=== PATIENT | female | born 1935 | race Caucasian/White ===

== ENCOUNTER → 2017-08-26 | Outpatient (CLI) | payer MEDICARE ==
[~2017-08-26] MED LIST: AMLODIPINE BESYL5 M1 PO; ASPIRIN325 PO; AZITHROMYCIN 2250 MG PO; B12INJ IM; CARAFATE 1 GM TA1 G1 PO; CARBIDOPA-LEVO1 EAC8 PO; COZAAR 25 MG TA25 M1 PO; COZAAR 50 MG TA50 M2 PO; FEROSUL325 M1 PO; GLUCOTROL5 MG PO; HUMALOG100 UNIT/1 SUBQ; HYDRALAZINE 2525 MG PO; HYDROCHLOROTH12.5 M1 PO; KEFLEX500 M1 PO; LASIX 40 MG TAB40 M2 PO; LEVALBUTER1.25 MG/0. INH; LEVOBUNOLOL 0.5%5 M1 OPHTHALMIC; LIPITOR 20 MG T20 M1 PO; LIPITOR10 MG PO; METFORMIN HCL500 MG PO; POTASSIUM20 PO; PROTONIX 20 MG20 M1 PO; PROTONIX40 M1 PO; SINEMET 25-1001 EAC1 PO; SYNTHROID88 MCG PO; VITAMIN B-1100 M1 PO; XALATAN2.5 ML OPHTHALMIC; [UNRECOGNIZED DRUG - OTHER] PO
[2017-08-26 08:19] LABS: POTASSIUM 3.5 mmol/L (3.5-5.1)
== END ==
LOC: M.LAB 01:39
PROVIDERS: Anesthesiology
DX: Z01.812 Encounter for preprocedural laboratory examination (principal); Z79.899 Other long term (current) drug therapy

== ENCOUNTER 2017-09-01 09:20 | Emergency (ER) | payer MEDICARE ==
[~2017-09-01] VITALS: Ht 144.8 cm; Wt 50.4 kg
[~2017-09-01 09:20] MED LIST changes: -AZITHROMYCIN 2250 MG PO; -CARAFATE 1 GM TA1 G1 PO; -COZAAR 25 MG TA25 M1 PO; -COZAAR 50 MG TA50 M2 PO; -HUMALOG100 UNIT/1 SUBQ; -HYDRALAZINE 2525 MG PO; -HYDROCHLOROTH12.5 M1 PO; -KEFLEX500 M1 PO; -LASIX 40 MG TAB40 M2 PO; -LEVALBUTER1.25 MG/0. INH; -LEVOBUNOLOL 0.5%5 M1 OPHTHALMIC; -LIPITOR10 MG PO; -POTASSIUM20 PO; -PROTONIX 20 MG20 M1 PO; -PROTONIX40 M1 PO; -SINEMET 25-1001 EAC1 PO; -SYNTHROID88 MCG PO; -VITAMIN B-1100 M1 PO; -XALATAN2.5 ML OPHTHALMIC
[2017-09-01] MEDS ORDERED: SYNTHROID88 MCG PO (09:32)
[2017-09-01] MEDS ORDERED: COZAAR 25 MG TA25 M1 PO (09:32)
[2017-09-01] MEDS ORDERED: PROTONIX 20 MG20 M1 PO (09:33)
[2017-09-01] MEDS ORDERED: CARAFATE 1 GM TA1 G1 PO (09:33)
[2017-09-01] MEDS ORDERED: LEVOBUNOLOL 0.5%5 M1 OPHTHALMIC (09:39)
[2017-09-01] MEDS ORDERED: XALATAN2.5 ML OPHTHALMIC (09:40)
[2017-09-01 09:51] LABS: HEMATOCRIT 46.2 % (37.0-47.0); MCH 32.8 pg (26.0-34.0); MCHC 34.6 g/dL (28.0-37.0); MCV 94.7 fL (80.0-100.0); MPV 9.6 fl. (7.2-11.1); RBC 4.88 mil/uL (4.20-5.00); RDW-CV 14.3 % (10.5-14.5); WBC 5.4 thou/uL (4.0-11.0)
[2017-09-01 09:59] LABS: ANION GAP 8 mmol/L (7-16); BUN 13 mg/dL (7-18); CALCIUM 9.1 mg/dL (8.5-10.1); CHLORIDE 107 mmol/L (98-107); CO2 29 mmol/L (21-32); CREATININE 0.8 mg/dL (0.6-1.3); GLUCOSE 99 mg/dL (70-99); POTASSIUM 3.9 mmol/L (3.5-5.1); SODIUM 144 mmol/L (136-145)
[2017-09-01 10:06] LABS: ALBUMIN 2.2 g/dL (3.4-5.0); ALKALINE PHOSPHATASE 226 U/L (46-116); SGOT 79 U/L (15-37); SGPT 61 U/L (30-65); TOTAL BILIRUBIN 1.8 mg/dL (<0.1-1.0); TOTAL PROTEIN 8.3 g/dL (6.4-8.2); TROPONIN-I LEVEL <0.06 ng/mL (<0.06)
[2017-09-01 10:38] LABS: URINE BILIRUBIN NEGATIVE (Negative); URINE BLOOD 1+ (Negative); URINE CLARITY CLEAR; URINE COLOR YELLOW; URINE GLUCOSE-RANDOM NEGATIVE (Negative); URINE KETONES NEGATIVE (Negative); URINE LEUKOCYTES-REFLEX NEGATIVE (Negative); URINE NITRITE-REFLEX NEGATIVE (Negative); URINE PROTEIN 2+ (Negative); URINE SPECIFIC GRAVITY 1.015 (1.005-1.030); URINE UROBILINOGEN 0.2 E.U./dl (0.2-1.0)
[2017-09-01 10:53] LABS: CASTS None Seen /LPF (None Seen); CRYSTALS None Seen /LPF (None Seen); SQUAMOUS >10 Many /LPF (0-3); URINE RBC 0-2 Rare /HPF (0-2); URINE WBC-REFLEX None Seen /HPF (0-5)
[2017-09-01 12:28] VITALS: BP 141/56
--- NOTE | 2017-09-01 16:03 | EKG ---
[place] [address] ELECTROCARDIOGRAM REPORT Name: AUSTIN WRIGHT Room: [facility] [id number] Admission: 09/01/17 Attend Phys: Discharge: 09/01/17 Date of : 35 Report #: [id number] THIS REPORT FOR: //name// [facility] ED Test Date: 2017-09-01 Test Time: 10:05:41 Pat Name: AUSTIN WRIGHT Department: Room: Gender: F Tapper Operator: Jesenia NICOLE : 1935 Requested By: Marek Bolaños Order Number: [id number] MD: Adelso Rdoriguez Measurements Intervals [place] Rate: 64 P: 64 MD: 140 QRS: -20 QRSD: 92 T: 39 QT: 469 QTc: 484 Interpretive Statements Sinus rhythm Probable left atrial enlargement Left ventricular hypertrophy Borderline prolonged QT interval No previous ECG available for comparison Electronically Signed On 09-01-2017 16:03:05 CDT by Adelso Rodriguez [email or web address] <ELECTRONICALLY SIGNED> By: Adelso Rodriguez MD, [facility] 09/01/17 1603 1005 Adelso Rodriguez MD, FACC /EPI
== END 2017-09-01 12:29 | disposition home or self-care (01) ==
LOC: M.ERS 09:20
PROVIDERS: Emergency Medicine Emergency Medical Services
DX: I10 Essential (primary) hypertension (principal); E11.9 Type 2 diabetes mellitus without complications; E03.9 Hypothyroidism, unspecified; Z90.49 Acquired absence of other specified parts of digestive tract; Z90.89 Acquired absence of other organs; Z88.8 Allergy status to other drugs, medicaments and biological substances

== ENCOUNTER 2017-11-03 09:51 | Inpatient (IN) | payer MEDICARE ==
[~2017-11-03] VITALS: Ht 144.8 cm; Wt 49.9 kg
[~2017-11-03 09:51] MED LIST changes: +CARAFATE 1 GM TA1 G1 PO; +COZAAR 25 MG TA25 M1 PO; +LEVOBUNOLOL 0.5%5 M1 OPHTHALMIC; +PROTONIX 20 MG20 M1 PO; +SYNTHROID88 MCG PO; +XALATAN2.5 ML OPHTHALMIC
[2017-11-03 09:59] VITALS: BP 189/68
[2017-11-03] MEDS ORDERED: B12INJ IM (10:08)
[2017-11-03] MEDS ORDERED: COZAAR 50 MG TA50 M2 PO (10:08)
[2017-11-03] MEDS ORDERED: HYDROCHLOROTH12.5 M1 PO (10:08)
[2017-11-03] MEDS ORDERED: XALATAN2.5 ML OPHTHALMIC (10:09)
[2017-11-03] MEDS ORDERED: PROTONIX40 M1 PO (10:09)
[2017-11-03] MEDS ORDERED: FEROSUL325 M1 PO (10:09)
[2017-11-03] MEDS ORDERED: SINEMET 25-1001 EAC1 PO (10:09)
[2017-11-03] MEDS ORDERED: GLUCOTROL5 MG PO (10:10)
[2017-11-03] MEDS ORDERED: CARAFATE 1 GM TA1 G1 PO (10:10)
[2017-11-03] MEDS ORDERED: LEVALBUTER1.25 MG/0. INH (10:11)
[2017-11-03] MEDS ORDERED: LIPITOR10 MG PO (10:11)
[2017-11-03 10:35] LABS: ABSOLUTE EOSINOPHILS 0.2 thou/uL (0.0-0.7); ABSOLUTE LYMPHOCYTES 1.1 thou/uL (0.8-5.3); ABSOLUTE MONOCYTES 0.3 thou/uL (0.0-1.2); ABSOLUTE NEUTROPHILS 3.2 thou/uL (1.6-8.1); BASOPHILS 0.7 %; EOSINOPHILS 3.6 %; HEMATOCRIT 36.5 % (37.0-47.0); HEMOGLOBIN 12.4 gm/dL (12.0-15.0); MCH 33.1 pg (26.0-34.0); MCV 97.1 fL (80.0-100.0); MONOCYTES 6.1 %; MPV 9.9 fl. (7.2-11.1); NUCLEATED RBCS 0 /100WBC; PLATELET COUNT* 79 thou/uL (150-400); POLYS 66.6 %; RBC 3.76 mil/uL (4.20-5.00); RDW-CV 14.4 % (10.5-14.5); WBC 4.8 thou/uL (4.0-11.0)
[2017-11-03 10:43] LABS: INR 1.1; PROTIME 10.9 Seconds (9.20-11.50)
[2017-11-03 10:45] LABS: ANION GAP 6 mmol/L (7-16); BUN 16 mg/dL (7-18); CALCIUM 8.2 mg/dL (8.5-10.1); CHLORIDE 100 mmol/L (98-107); CO2 28 mmol/L (21-32); GLUCOSE 474 mg/dL (70-99); POTASSIUM 3.9 mmol/L (3.5-5.1); SODIUM 134 mmol/L (136-145)
[2017-11-03 10:56] LABS: ALBUMIN 1.9 g/dL (3.4-5.0); ALKALINE PHOSPHATASE 434 U/L (46-116); LIPASE 309 U/L (73-393); NT-PRO BRAIN NAT PEPTIDE 205 pg/mL (<300); SGOT 47 U/L (15-37); SGPT 9 U/L (30-65); TOTAL BILIRUBIN 0.8 mg/dL (<0.1-1.0); TOTAL PROTEIN 7.3 g/dL (6.4-8.2); TROPONIN-I LEVEL <0.06 ng/mL (<0.06)
[2017-11-03 11:21] LABS: URINE BILIRUBIN NEGATIVE (Negative); URINE BLOOD NEGATIVE (Negative); URINE CLARITY CLEAR; URINE COLOR YELLOW; URINE GLUCOSE-RANDOM 3+ (Negative); URINE KETONES NEGATIVE (Negative); URINE LEUKOCYTES-REFLEX NEGATIVE (Negative); URINE NITRITE-REFLEX NEGATIVE (Negative); URINE PROTEIN 1+ (Negative); URINE SPECIFIC GRAVITY 1.015 (1.005-1.030)
[2017-11-03 14:15] VITALS: BP 176/72
[2017-11-03 14:30] VITALS: BP 194/66
--- NOTE | 2017-11-03 15:29 | NUR ---
RECEIVED REPORT FROM BHARAT IN ED AND ASSUMED CARE OF PT @ 1430.PT IS A/O X4,BP ELEVATED @ 194/66.TRACING SINUS ARRYTHMIA ON THE MONITOR.LUNG SOUNDS ARE CLEAR DIMINSHED.LAST BM WAS TODAY.IV LEFT AC PATENT AND SALINE LOCKED.PT IS CALM AND COOPERATIVE WITH NO C/O PAIN AT TIME OF ASSESSMENT.PT IS LEFT RESTING IN BED WITH CALL LIGHT AND FALL PRECAUTIONS IN PLACE.WILL CONTINUE TO MONITOR FOR SURATION OF SHIFT.PT INFORMED OF PLAN OF CARE AND COMMUNICATES OF UNDERSTANDING.HOURLY ROUNDING COMPLETED FOR PT SAFETY.
--- NOTE | 2017-11-03 16:31 | EKG ---
[place] [address] ELECTROCARDIOGRAM REPORT Name: AUSTIN WRIGHT Room: [address] IN .R.#: [id number] Admission: 11/03/17 Attend Phys: Giselle Pereyra Discharge: Date of : 35 Report #: [id number] THIS REPORT FOR: //name// [facility] ED Test Date: 2017-11-03 Test Time: 10:30:12 Pat Name: AUSTIN WRIGHT Department: Room: Gender: F Economic Research Assistant: Jesenia NICOLE : 1935 Requested By: Tobias Engle Order Number: [id number] MD: Haider Cotton Measurements Intervals [place] Rate: 66 P: 42 OR: 151 QRS: -25 QRSD: 88 T: 58 QT: 459 QTc: 481 Interpretive Statements Sinus rhythm Left ventricular hypertrophy Minimal nterior ST elevation, probably due to LVH Borderline prolonged QT interval Compared to ECG 09/01/2017 10:05:41 ST (T wave) deviation now present Electronically Signed On 11-03-2017 16:31:13 CDT by Haider Cotton [email or web address] <ELECTRONICALLY SIGNED> By: Haider Cotton MD, FACC 11/03/17 1631 1030 1030 Haiedr Cotton MD, [facility] /EPI
--- NOTE | 2017-11-03 17:43 | NUR ---
VSS,CARDIAC MONITORING IN PLACE WITH NO CHANGES THIS SHIFT.PT REMAINS ON ROOM AIR.PT HAS DENIED PAIN.IV PATENT AND SALINE LOCKED.PT INFORMED OF PLAN OF CARE AND COMMUNICATES UNDERSTANDING.HOURLY ROUNDING COMPLETED FOR PT SAFETY.CALL LIGHT AND FALL PRECAUTIONS IN PLACE.WILL CONTINUE TO MONITOR FOR DURATION OF SHIFT.
[2017-11-03 19:45] VITALS: BP 183/70
[2017-11-04] VITALS: BP 118/53
[2017-11-04 04:00] VITALS: BP 115/51
--- NOTE | 2017-11-04 05:01 | NUR ---
END SHIFT: PT RESTED WELL. SR ON MONITOR. VSS. ASSESSMENT UNCHANGED. PTS BLOOD SUGAR DROPPED OVER SHIFT AND WAS RAISED WITH JUICE AND A PROTIEN SHAKE. LAST SUGAR CHECK WAS 176. PT STATES SHE IS READY TO GO HOME. SAFETY PRECAUTIONS IN PLACE. CALL LIGHT IN REACH. WILL CONT TO MONITOR.
[2017-11-04 08:24] VITALS: BP 154/58
--- NOTE | 2017-11-04 10:01 | EKG ---
[place] [address] ELECTROCARDIOGRAM REPORT Name: AUSTIN WRIGHT Room: [address] ADM IN M.R.#: [id number] Admission: 11/03/17 Attend Phys: Giselle Pereyra Discharge: Date of : 35 Report #: [id number] THIS REPORT FOR: //name// [facility] Test Date: 2017-11-04 Test Time: 01:11:33 Pat Name: AUSTIN WRIGHT Department: Room: [address] Gender: F Mattress Stripper: KIARA : 1935 Requested By: Nida Bernstein Order Number: [id number] MD: Anastacio Avila Measurements Intervals [place] Rate: 73 P: 39 OR: 160 QRS: -23 QRSD: 89 T: 43 QT: 433 QTc: 478 Interpretive Statements Sinus rhythm LVH with secondary repolarization abnormality Baseline wander in lead(s) V3 Compared to ECG 11/03/2017 10:30:12 no change Electronically Signed On 11-04-2017 10:01:27 CDT by Anastacio Avila [email or web address] <ELECTRONICALLY SIGNED> By: Anastacio Avila MD, [facility] 11/04/17 1001 0111 0111 Anastacio Avila MD, [facility] /EPI
[2017-11-04 11:58] VITALS: BP 110/56
--- NOTE | 2017-11-04 14:32 | NUR ---
Pt is A&O. Resides at home with her . Independent with ADLs, Pt and share chores. Pt has a walker that she can use at home if needed. No hx of HH or SNF. Supportive family. Pt is anxious to dc home, no needs anticipated.
[2017-11-04 16:21] VITALS: BP 131/41
--- NOTE | 2017-11-04 18:07 | NUR ---
ASSUMED CARE OF PT AT 0730. PT CONTINUES TO BE A&O X4 CALM AND COOPERATIVE. PT HAS HAD NO C/O PAIN OR DISCOMFORT TODAY. VSS, AND PT HAS BEEN TRACING SR ON THE MONNITOR. PT UP WITH 1 ASSIST AND VOIDS VIA THE TOILET. PT HAS BEEN EATING WELL TODAY CONSUMING GREATER THAN 75% OF ALL MEALS. PT DID HAVE AN EPISODE OF URINARY INCONTINENCE TODAY AND STATED THAT IT HAPPENS EVERY ONCE IN A WHILE AT HOME. PT DENIES ANY C/O CHEST PAIN, DIZZIENESS, OR N/V. PT CURRENTLY RESTING IN BED WITH EYES CLOSED. BREATHING EVEN AND UNLABORED AT A NORMAL RATE AND DEPTH. MEDICATIONS HAVE BEEN ADMINISTERED PER MAR AND NURSING ASSESSMENT COMPLETED AND CHARTED. NURSING WILL CONTINUE TO MONITOR.
[2017-11-04 20:51] VITALS: BP 129/45
[2017-11-05] VITALS: BP 109/42
[2017-11-05 04:00] VITALS: BP 114/43
--- NOTE | 2017-11-05 05:52 | NUR ---
PT IS ABLE TO COMMUNICATE HER NEEDS TO STAFF EFFECTIVELY. SHE HAS DENIED THE NEED FOR PAIN MEDICATION UP TO THIS TIME. POSSIBLE DISCHARGE TODAY.
[2017-11-05 08:00] VITALS: BP 126/49
[2017-11-05 12:00] VITALS: BP 150/57
--- NOTE | 2017-11-05 13:38 | NUR ---
ASSUMED CARE OF PATIENT THIS AM AT 0730. PATIENT IS ALERT AND ORIENTED X 4. SHE DENIES PAIN THIS AM. PATIENT HAS BEEN UP TO THE CHAIR AND UP TO THE BATHROOM WITH WALKER AND STANDBY ASSIST. HER BLOOD SUGARS CONTINUE TO BE >300 TODAY. PATIENT ADVANCED TO MODERATE SCALE INSULIN. DR REZA IN TO ROUND THIS AFTERNOON AND CONFERRED WITH DR BEST RE: FURTHER TESTS THAT NEED TO BE DONE ON THE PATIENT. DISCUSSED TEST IS NOT AVAILABLE AT THIS FACILITY. PATIENT IS TO TRANSFER TO ANOTHER FACILITY. TELE SHOWS SR WITH PACS. NO FALLS OR INJURY.
[2017-11-05] MEDS ORDERED: HYDRALAZINE 2525 MG PO (16:24)
[2017-11-05] MEDS ORDERED: VITAMIN B-1100 M1 PO (16:27)
--- NOTE | 2017-11-05 16:30 | NUR ---
CM INFORMED BY DR CARCAMO THAT THE PATIENT REQUIRES TRANSFER TO [facility] FOR CERVICAL STENOSIS AND NEUROSURGEON CONSULT. BRE CONTACTED THE TRANSFER TEAM TO INFORM OF THE REFERRAL FOR TRNASFER AND SPOKE TO SAMY. SAMY RETURNED CALL AND INFORMS THAT THE ACCEPTING DR IS DR KRISSY WITT. THE PATIENTS ROOM NUMBER IS [id number], AND JAYE WILL CALL OUR RN TO GET REPORT. CM SETUP TRNASPORT WITH [facility] FOR 1800. CM WILL REMAIN AVIALABLE TO ASSIST AND FOLLOW NEEDED.
[2017-11-05] MEDS ORDERED: HUMALOG100 UNIT/1 SUBQ (16:33)
[2017-11-05 16:34] VITALS: BP 150/57
--- NOTE | 2017-11-09 12:20 | CON ---
[address] [address] CONSULTATION Name: AUSTIN WRIGHT Room: [address] IN M.R.#: [id number] Admission: 11/03/17 Attend Phys: Giselle Pereyra Discharge: 11/05/17 Date of : 35 Report #: [id number] THIS REPORT FOR: //name// CC: Nida Abdi DATE OF SERVICE: 11/04/2017 HISTORY OF PRESENT ILLNESS: This is an 82-year-old female patient who was evaluated by me today for gait disturbances. The patient has a diagnosis of Parkinson disease. It is not sure what really happened to this patient, but she said she was not walking as good as she usually does. She did not have much tremor with it. She fell a few months ago, but that was not because of the walking difficulty. It is because the and the patient was walking in a dark place and he fell and she tried to catch and she fell. There is no associated motor deficit with it. There is no associated dizziness associated with it. These symptoms came spontaneously without any trauma. REVIEW OF SYSTEMS: Indicate the patient does have a history of Parkinson disease. She takes medication for that. She also has a history of diabetes and hypertension. They were both uncontrolled as I understand. The control of diabetes and hypertension is better now. She is feeling better. She has not walked to see whether her walking has improved or not. Otherwise, she is not complaining of any new eye, ENT, cardiac, respiratory, GI, , musculoskeletal, constitutional, dermatological, hematological, psychiatric, throat or allergic symptom associated with the present symptomatology. PAST MEDICAL HISTORY: Positive for Parkinson disease. FAMILY HISTORY: Negative for early age stroke. SOCIAL HISTORY: She does not smoke or drink any alcohol. PHYSICAL EXAMINATION: Indicate she is alert. She is responsive. She can follow simple commands. Her speech, concentration, fund of knowledge and memory is at her baseline. Cranial nerve examination 2-12 looks unremarkable. The patient has a symmetrical strength, sensation, reflexes and tone in all 4 extremities. Her reflexes are elicitable in the lower extremities and position sense is intact. She has no papilledema. There is no carotid bruit. She is a reasonably well-developed individual who does not have any dysmorphic features of eyes, ears and face. Her vision and hearing looks adequate. Her pulses are palpable. She has no edema, cyanosis or jaundice. Her cardiac examination is unremarkable. She has no respiratory difficulty or rhonchi on either side. Her blood pressure is 154/58, respiration is 18, pulse is 69, temperature is 97.8. [place] [address] CONSULTATION Name: AUSTIN WRIGHT Room: [address] IN M.R.#: [id number] Admission: 11/03/17 Attend Phys: Giselle Pereyra Discharge: 11/05/17 Date of : 35 Report #: [id number] Labs indicate that the patient's sodium is 134. Blood sugar has fluctuated. White count is 4.8. She did have an MRI of the brain and MRA of the head and neck. That does not show any acute abnormality. The patient has minor changes, but nothing which can explain the patient's symptom. She is not having any symptoms of the spine and MRI does indicate cervical spinal stenosis. IMPRESSION: I think the patient's problem is because of her underlying problems which is Parkinson disease. She may have developed some encephalopathy because of her uncontrolled hypertension and diabetes. We will try to exclude any contributing factor from the spine. I discussed all of it with the patient and my plan is to get an MRI of the spine done. We will get a TSH, vitamin B12 done. She does have a consult with physical therapy. We will see how she does. We may get her evaluated for rehab if her ambulation is impaired. Thank you very much for this referral. <ELECTRONICALLY SIGNED> By: Harpreet Erickson MD 11/09/17 1220 1135 [id number] Erickson MD /nt
== END 2017-11-05 18:29 | disposition short-term general hospital (02) | DRG 551 ==
LOC: M.ERS 09:51 → M.2W 13:50 → M.TBA-ER 13:50 → M.2W 14:40
PROVIDERS: Emergency Medicine; ADMIT Internal Medicine
DX: M48.02 Spinal stenosis, cervical region (principal); E43 Unspecified severe protein-calorie malnutrition; M47.816 Spondylosis without myelopathy or radiculopathy, lumbar region; I16.0 Hypertensive urgency; I10 Essential (primary) hypertension; G20 Parkinson's disease; E03.9 Hypothyroidism, unspecified; R26.9 Unspecified abnormalities of gait and mobility; D51.0 Vitamin B12 deficiency anemia due to intrinsic factor deficiency; Z90.49 Acquired absence of other specified parts of digestive tract; Z88.8 Allergy status to other drugs, medicaments and biological substances; Z79.82 Long term (current) use of aspirin; Z79.899 Other long term (current) drug therapy; Z79.4 Long term (current) use of insulin; Z98.890 Other specified postprocedural states; Z86.73 Personal history of transient ischemic attack (TIA), and cerebral infarction without residual deficits; Z81.8 Family history of other mental and behavioral disorders

== ENCOUNTER 2017-11-22 16:39 | Emergency (ER) | payer MEDICARE ==
[~2017-11-22] VITALS: Ht 144.8 cm; Wt 49.4 kg
[~2017-11-22 16:39] MED LIST changes: +COZAAR 50 MG TA50 M2 PO; +HUMALOG100 UNIT/1 SUBQ; +HYDRALAZINE 2525 MG PO; +HYDROCHLOROTH12.5 M1 PO; +LEVALBUTER1.25 MG/0. INH; +LIPITOR10 MG PO; +PROTONIX40 M1 PO; +SINEMET 25-1001 EAC1 PO; +VITAMIN B-1100 M1 PO
[2017-11-22 17:03] LABS: ABSOLUTE BASOPHILS 0.1 thou/uL (0.0-0.2); ABSOLUTE EOSINOPHILS 0.1 thou/uL (0.0-0.7); ABSOLUTE LYMPHOCYTES 1.2 thou/uL (0.8-5.3); ABSOLUTE MONOCYTES 0.5 thou/uL (0.0-1.2); ABSOLUTE NEUTROPHILS 4.6 thou/uL (1.6-8.1); BASOPHILS 0.9 %; EOSINOPHILS 1.9 %; HEMATOCRIT 29.1 % (37.0-47.0); LYMPHOCYTES 18.7 %; MCH 33.4 pg (26.0-34.0); MCHC 34.3 g/dL (28.0-37.0); MCV 97.5 fL (80.0-100.0); MONOCYTES 7.2 %; MPV 8.1 fl. (7.2-11.1); NUCLEATED RBCS 0 /100WBC; PLATELET COUNT* 146 thou/uL (150-400); POLYS 71.3 %; RBC 2.98 mil/uL (4.20-5.00); RDW-CV 16.1 % (10.5-14.5); WBC 6.4 thou/uL (4.0-11.0)
[2017-11-22 17:13] LABS: APTT 26.9 Seconds (25.0-31.3); INR 1.1; PROTIME 10.8 Seconds (9.20-11.50)
[2017-11-22 17:14] LABS: ANION GAP 7 mmol/L (7-16); BUN 15 mg/dL (7-18); CALCIUM 7.9 mg/dL (8.5-10.1); CHLORIDE 102 mmol/L (98-107); CO2 28 mmol/L (21-32); GLUCOSE 106 mg/dL (70-99); POTASSIUM 4.2 mmol/L (3.5-5.1); SODIUM 137 mmol/L (136-145)
[2017-11-22 17:25] LABS: ALBUMIN 2.1 g/dL (3.4-5.0); ALKALINE PHOSPHATASE 155 U/L (46-116); NT-PRO BRAIN NAT PEPTIDE 268 pg/mL (<300); SGOT 53 U/L (15-37); SGPT 14 U/L (30-65); TOTAL BILIRUBIN 0.6 mg/dL (<0.1-1.0); TOTAL PROTEIN 6.9 g/dL (6.4-8.2); TROPONIN-I LEVEL <0.06 ng/mL (<0.06)
[2017-11-22] MEDS ORDERED: LASIX 40 MG TAB40 M2 PO (18:29)
[2017-11-22] MEDS ORDERED: POTASSIUM20 PO (18:29)
[2017-11-22 18:40] VITALS: BP 134/61
--- NOTE | 2017-11-23 14:59 | EKG ---
[place] [address] ELECTROCARDIOGRAM REPORT Name: AUSTIN WRIGHT Room: [facility]#: [id number] Admission: 11/22/17 Attend Phys: Discharge: 11/22/17 Date of : 35 Report #: [id number] THIS REPORT FOR: //name// [facility] ED Test Date: 2017-11-22 Test Time: 17:02:03 Pat Name: AUSTIN WRIGHT Department: Room: Gender: F Amplifier Mechanic: Jesenia NICOLE : 1935 Requested By: Jean Carlos Flanagan Order Number: [id number] MD: Adelso Rodriguez Measurements Intervals [place] Rate: 72 P: 56 DE: 141 QRS: -9 QRSD: 90 T: 78 QT: 418 QTc: 458 Interpretive Statements Sinus rhythm Baseline wander in lead(s) V2 Compared to ECG 11/04/2017 01:11:33 Left ventricular hypertrophy no longer present Early repolarization no longer present Electronically Signed On 11-23-2017 14:59:02 CDT by Adelso Rodriguez [email or web address] <ELECTRONICALLY SIGNED> By: Adelso Rodriguez MD, [facility] 11/23/17 1459 170 01 Adelso Rodriguez MD, FAC /EPI
== END 2017-11-22 18:42 | disposition home or self-care (01) ==
LOC: M.ERS 16:39
PROVIDERS: Family Medicine
DX: R60.9 Edema, unspecified (principal); E11.9 Type 2 diabetes mellitus without complications; E03.9 Hypothyroidism, unspecified; Z90.49 Acquired absence of other specified parts of digestive tract; Z79.4 Long term (current) use of insulin; Z86.73 Personal history of transient ischemic attack (TIA), and cerebral infarction without residual deficits; Z88.8 Allergy status to other drugs, medicaments and biological substances

== ENCOUNTER 2017-12-23 18:05 | Inpatient (IN) | payer MEDICARE ==
[~2017-12-23] VITALS: Ht 144.8 cm; Wt 54.9 kg
[~2017-12-23 18:05] MED LIST changes: +LASIX 40 MG TAB40 M2 PO; +POTASSIUM20 PO
[2017-12-23 18:12] VITALS: BP 190/82
[2017-12-23 18:30] LABS: HEMATOCRIT 32.7 % (37.0-47.0); HEMOGLOBIN 10.9 gm/dL (12.0-15.0); MCH 32.6 pg (26.0-34.0); MCHC 33.5 g/dL (28.0-37.0); MCV 97.3 fL (80.0-100.0); MPV 8.8 fl. (7.2-11.1); NUCLEATED RBCS 0 /100WBC; PLATELET COUNT* 140 thou/uL (150-400); RBC 3.36 mil/uL (4.20-5.00); RDW-CV 15.1 % (10.5-14.5); WBC 10.9 thou/uL (4.0-11.0)
[2017-12-23 18:41] LABS: BE -3.8 mmol/L (-2 to +3); HCO3 18.4 mmol/L (22.0-26.0); PCO2 25.1 mmHg (35.0-45.0); PO2 77.9 mmHg (75.0-100.0); pH 7.483 (7.340-7.450)
[2017-12-23 19:02] LABS: ABSOLUTE LYMPHOCYTES 0.9 thou/uL (0.8-5.3); ABSOLUTE MONOCYTES 0.3 thou/uL (0.0-1.2); ABSOLUTE NEUTROPHILS 9.7 thou/uL (1.6-8.1)
[2017-12-23 19:03] LABS: PLATELET ESTIMATE ADEQUATE
[2017-12-23 19:09] LABS: URINE BILIRUBIN NEGATIVE (Negative); URINE BLOOD TRACE (Negative); URINE CLARITY SL CLOUDY; URINE COLOR YELLOW; URINE GLUCOSE-RANDOM 2+ (Negative); URINE KETONES NEGATIVE (Negative); URINE LEUKOCYTES-REFLEX NEGATIVE (Negative); URINE NITRITE-REFLEX NEGATIVE (Negative); URINE PROTEIN 2+ (Negative); URINE SPECIFIC GRAVITY >= 1.030 (1.005-1.030); URINE UROBILINOGEN 0.2 E.U./dl (0.2-1.0)
[2017-12-23 19:18] LABS: AMORPHOUS URATES Moderate /LPF (None Seen); BACTERIA-REFLEX None Seen /HPF (None Seen); CASTS None Seen /LPF (None Seen); MUCUS 0-3 Light strn/LPF (None Seen); SQUAMOUS 4-10 Moderate /LPF (0-3); URINE RBC 0-2 Rare /HPF (0-2); URINE WBC-REFLEX None Seen /HPF (0-5)
[2017-12-23 19:37] LABS: ALBUMIN 2.3 g/dL (3.4-5.0); ALKALINE PHOSPHATASE 206 U/L (46-116); ANION GAP 9 mmol/L (7-16); BUN 15 mg/dL (7-18); CALCIUM 8.6 mg/dL (8.5-10.1); CHLORIDE 102 mmol/L (98-107); CO2 23 mmol/L (21-32); GLUCOSE 298 mg/dL (70-99); LIPASE 293 U/L (73-393); POTASSIUM 3.8 mmol/L (3.5-5.1); SGOT 55 U/L (15-37); SGPT 41 U/L (30-65); SODIUM 134 mmol/L (136-145); TOTAL BILIRUBIN 1.3 mg/dL (<0.1-1.0); TOTAL PROTEIN 7.4 g/dL (6.4-8.2); TROPONIN-I LEVEL <0.06 ng/mL (<0.06)
[2017-12-24 01:25] VITALS: BP 134/60
[2017-12-24 04:00] VITALS: BP 128/36
[2017-12-24 04:46] LABS: ABSOLUTE LYMPHOCYTES 0.8 thou/uL (0.8-5.3); ABSOLUTE MONOCYTES 0.6 thou/uL (0.0-1.2); BASOPHILS 0.2 %; EOSINOPHILS 0.6 %; HEMATOCRIT 29.2 % (37.0-47.0); HEMOGLOBIN 9.7 gm/dL (12.0-15.0); LYMPHOCYTES 10.9 %; MCH 32.9 pg (26.0-34.0); MCHC 33.3 g/dL (28.0-37.0); MCV 98.9 fL (80.0-100.0); MONOCYTES 7.4 %; NUCLEATED RBCS 0 /100WBC; PLATELET COUNT* 94 thou/uL (150-400); POLYS 80.9 %; RBC 2.95 mil/uL (4.20-5.00); RDW-CV 15.3 % (10.5-14.5); WBC 7.5 thou/uL (4.0-11.0)
[2017-12-24 05:15] LABS: ALBUMIN 1.8 g/dL (3.4-5.0); CALCIUM 7.9 mg/dL (8.5-10.1); CREATININE 0.8 mg/dL (0.6-1.3); MAGNESIUM 1.3 mg/dL (1.8-2.4); PHOSPHORUS* 2.2 mg/dL (2.5-4.9); POTASSIUM 3.7 mmol/L (3.5-5.1); TOTAL BILIRUBIN 0.7 mg/dL (<0.1-1.0); TOTAL PROTEIN 6.1 g/dL (6.4-8.2)
[2017-12-24 05:22] LABS: APTT 32.4 Seconds (25.0-31.3); INR 1.3; PROTIME 12.5 Seconds (9.20-11.50)
--- NOTE | 2017-12-24 07:37 | NUR ---
PT ADMITTED TO UNIT. ADMISSION COMPLETED CHARTED. ASSESSMENT DOCUMENTED. IV PATENT, FLUIDS INFUSING. MED RECONILLIATION NOT DONE FAMILY HAD ALREADY LEFT. PT POSITIVE FOR SEPSIS, NOTIFIED, ORDERS RECIEVED. PT COMPLAINING OF NEEDING TO URINATE BUT WAS UNABLE TO VOID, PT BLADDER SCANNED READING 661ML, DR NOTIFIED, ROMERO PLACED PER ORDER. WILL CONTINUE WITH PLAN OF CARE.
[2017-12-24 08:00] VITALS: BP 133/54
--- NOTE | 2017-12-24 09:49 | NUR ---
ASSUMED CARE OF PT THIS AM AROUND 0715- SURVEILLANCE SUPERVISOR IN PLACE ORDERED, TRACING SR THIS AM- UPON ASSESSMENT PT NOTED TO BE RESTING IN BED, EYES OPEN- PT A&O X1-2 WITH NOTED FORGETFULLNESS- INCONTINENT OF BOWEL, ROMERO IN PLACE D/D CLEAR ANTONIO URINE R/T RETENTION- EXT ASSIST WITH TRANSFERS- BED REST IN PLACE WITH Q2 HOUR TURNS- ABDOMEN SOFT/ROUND/NON-TENDER, BS X4 QUADS-SEVERAL BM'S NOTED THIS AM- IV NOTED TO RIGHT AC AND RIGHT WRIST INTACT, IVF TO RIGHT WRIST INFUSSING PRESCIBED- POOR PO INTAKE NOTED WITH MEALS- BS MONITORED [id number] IN PLACE INDICATED- LACTIC THIS AM NOTED AT 2.2, TRENDING DOWN- TROP RESULTED AT 0.12 THIS AM, NOTIFIED WITH ORDERS RECIEVED TO CONSULT CARDIOLOGY- PT DENIES ANY C/O PAIN/DISCOMFORT AT THIS TIME- CALL LIGHT AND PERSONAL BELONGINGS WITH IN REACH- HOURLY ROUNDS IN PLACE R/T SAFETY/NEEDS- BED ALARM IN PLACE ADN WORKING FOR PT SAFETY- ALL NEEDS MET AT THIS TIME-CELIA
[2017-12-24 11:26] VITALS: BP 106/40
--- NOTE | 2017-12-24 12:41 | EKG ---
[place] [address] ELECTROCARDIOGRAM REPORT Name: AUSTIN WRIGHT Room: [address] IN R#: [id number] Admission: 12/23/17 Attend Phys: Fariha Nielsen MD Discharge: Date of : 35 Report #: [id number] THIS REPORT FOR: //name// [facility] ED Test Date: 2017-12-23 Test Time: 18:18:13 Pat Name: AUSTIN WRIGHT Department: Room: Gender: F Snubber: Jesenia SMITH : 1935 Requested By: Tari Posada Order Number: [id number] MD: Erick Velasquez Measurements Intervals [place] Rate: 112 P: 69 WI: 161 QRS: -29 QRSD: 82 T: 81 QT: 345 QTc: 471 Interpretive Statements Sinus tachycardia Left ventricular hypertrophy Compared to ECG 11/22/2017 17:02:03 Left ventricular hypertrophy now present Sinus rhythm no longer present Electronically Signed On 12-24-2017 12:40:57 CDT by Erick Velasquez [email or web address] <ELECTRONICALLY SIGNED> By: Erick Velasquez MD, FACC 12/24/17 1240 1818 1818 Erick Velasquez MD, [facility] /EPI
[2017-12-24 15:47] VITALS: BP 164/68
--- NOTE | 2017-12-24 16:55 | NUR ---
PT CURRENLTY RESTING IN BED, EYES CLOSED- FAMILY UP TO VISIT THIS AM- CARDICA MONITOR IN PLACE ORDERED, TRACING SR- IV TO RIGHT AC AND RIGHT WRIST INTACT AND SL- AROUND 1330 PT REPORTED TO FEEL SOA, O2 SAT TAKEN AND NOTED TO BE 96-98% ON RA- IVF AT THAT TIME NOTED TO BE RUNNING AT 150ML/HR- CHEST X-RAY NOTED WITH PLEAURAL EFFUSIONS- NOTIFIED WITH ORDERED OBTAINED TO D/C IVF- PT SINCE HAS NO FURTHER C/O SOA- FAIR PO INTAKE NOTED WITH MEALS, BS MONITORED ORDERED- SOFT/LOOSE STOOLS NOTED X3 THIS SHIFT- CARDIOLOGY HERE TO ASSESS THIS SHIFT R/T ELEVATED TROP, NO NEW ORDERS NOTED- TROP AT 1243 NOTED TO BE TRENDING DOWN AT 0.08- C-COLLAR INTACT INDICATED- Q [address] INDICATED- DENIES ANY C/O PAIN/DISCOMFORT AT THIS TIME- BED ALARM IN PLACE AND WORKING R/T PT SAFETY- ALL NEEDS MET AT THIS TIME-WCTM
[2017-12-24 20:34] VITALS: BP 140/48
[2017-12-25] VITALS: BP 141/60
[2017-12-25 04:00] VITALS: BP 124/64
--- NOTE | 2017-12-25 05:47 | NUR ---
PT RESTS QUIETLY IN BED THIS SHIFT, NO COMPLAINTS/CONCERNS EXPRESSED, PT DENIES PAIN, DENIES BEING SHORT OF AIR, C COLLAR REMAINS IN PLACE, PT CONTINUES ON IV ABX WITH NO ADVERSE EFFECTS, PT REMAINS SINUS RHYTHM ON CARDIAC MONITORING, NO BM THIS SHIFT, ROMERO CATH REMAINS INTACT TO DEPENDENT DRAINAGE, DRAINING DARK YELLOW URINE, PT NOW RESTING WITH EYES CLOSED, CALL LIGHT WITHIN REACH, SIDE RAILS UP X 2
[2017-12-25 07:48] VITALS: BP 132/58
--- NOTE | 2017-12-25 09:18 | NUR ---
ASSUMED CARE OF PT THIS AM AROUND 0715- PERSONAL BANKING ADVISOR IN PLACE ORDERED, TRACING SR- UPON ASSESSMENT PT NOTED TO BE RESTING IN BED- PT A&O X4, WITH NOTED IMPROVEMENT TO BASE LINE THIS AM- CONTINENT OF BOWEL AND BLADDER- ASSIST X1 WITH TRANSFERS- LCTA, RESP EVEN AND UN-LABORED- VSS, O2 SAT 98% ON RA- ABDOMEN SOFT/ROUND/NON-TENDER, BS X4 QUADS- LAST BM REPORTED ON PRIOR SHIFT- IV NOTED TO RIGHT AC AND RIGHT WRIST INTACT AND SL- C-COLLAR IN PLACE INDICATED-LACTIC IMPROVED AT 1.4 THIS AM- SET UP WITH MEALS, GOOD PO INTAKE NOTED THIS AM WITH BREAKFAST- BS MONIOTRED ORDERED, CONTROLLED PER ORAL MEDICATIONS/SSI-BLOOD CULTUES WITH OUT GROWTH THIS AM- CALL LIGHT AND PERSONAL BELONGINGS WITH IN REACH- HOURLY ROUNDS IN PLACE R/T SAFETY/NEEDS- ALL NEEDS MET AT THIS TIME-WCTM
[2017-12-25 12:00] VITALS: BP 116/56
[2017-12-25 15:43] VITALS: BP 147/65
--- NOTE | 2017-12-25 16:17 | NUR ---
PT MARKELLENLTY RESTING IN BED- ART SUPERVISOR IN PLACE ORDERED, TRACING SR- IV TO RIGHT AC AND RIGHT WRIST INTACT AND SL- PT UP TO BED SIDE RECLINER WITH MEALS THIS SHIFT, TOLERATING WELL- NEW ORDER RECIEVED THIS SHIFT PER THIS SHIFT TO START FLOMAX R/T TO URINARY RETENTION WITH ROMERO TO BE D/C'D IN AM- 1ST DOSE GIVEN THIS SHIFT- D/C PENDING JENS 12/26/17- C-COLLAR REMAINS INTACT AND INDICATED THIS SHIFT- BS MONITORED PRESCIBED- DENIES ANY C/O PAIN/DISCOMFORT AT THIS TIME-CALL LIGHT AND PERSONAL BELONGINGS WITH IN REACH- ALL NEEDS MET AT THIS TIME-WCTM
[2017-12-25 20:08] VITALS: BP 132/64
[2017-12-26] VITALS: BP 138/64
--- NOTE | 2017-12-26 02:38 | NUR ---
RECEIVED REPORT AND ASSUMED CARE OF PATIENT AT 1930. CUPOLA TENDER HELPER IN PLACE TRACING ST. ASSESSMENT AND VITALS COMPLETED CHARTED, VSS ON ROOM AIR . PATIENT A&OX4. PATIENT DENIES PAIN AND DISCOMFORT. PATIENT WAS UP TO CHAIR UPON ASSESSMENT, RETURNED TO BED AROUND 1999. PATIENT WEARING NECK BRACE FOR HER C-SPINE LAMINECTOMY SHE HAD PERFORMED 7 WEEKS AGO. PATIENT ENCOURAGED TO USE INCENTIVE SPIROMETER. GOAL IS TO REST COMFORTABLY. CALL LIGHT WITHIN REACH
[2017-12-26 04:05] VITALS: BP 122/59
--- NOTE | 2017-12-26 05:16 | NUR ---
PATIENT PROGRESSING TOWARDS GOALS: PATIENT HAS RESTED COMFORTABLY THIS SHIFT AND DENIES PAIN OR DISCOMFORT. VITALS REMAIN STABLE. PATIENT ON ROOM AIR STILL WITH VS WNL. HOURLY ROUNDING OBSERVED. CALL LIGHT WITHIN REACH
[2017-12-26 08:00] VITALS: BP 145/51
[2017-12-26] MEDS ORDERED: AZITHROMYCIN 2250 MG PO (11:29)
[2017-12-26] MEDS ORDERED: KEFLEX500 M1 PO (11:29)
--- NOTE | 2017-12-26 12:00 | NUR ---
VSS, ASSUMED CARE IN THE AM, ASSESSMENT PERFORMED AND CHARTED, FALL PRECAUTIONS IN PLACE AND CALL LIGHT IN REACH, PT IS A&O4 AND ON RA AND UP WITH STAND BY, PT DENIES ANY PAIN AND IS TRACING SR ON THE MONITOR, PT GOAL IS TO D/C TO HOME, AT THIS TIME I RECIEVED D/C INSTRUCTIONS, TOOK OUT IV AND TELE MONITOR, PROVITED SCRIPTS AND D/C INSTRUCTION, PT DENIES ANY QUESTIONS AND WAS TAKEN OUT BY WHEEL CHAIR TO CAR, BELONGINGS GATHERED AND PLACED WITH PT, HOURLY ROUNDS COMPLETED.
[2017-12-26 12:18] VITALS: BP 145/51
--- NOTE | 2017-12-26 13:22 | NUR ---
MET WITH PT TO DISCUSS HOME SITUATION/DC PLANNING. PT LIVES WITH SPOUSE, HAD CSPINE SURGERY 8 WKS AGO AND STATES HAS APPT WITH THER SURGEON TOMORROW. HOPES TO GET HER C-COLLAR OFF. PT STATES SHE USES A CANE. SPOUSE ASSISTS HER WITH ADLS AT HOME SINCE SHE HAS LIMITATIONS D/T THE C COLLAR. SHE HAD HH WITH [facility] AFTER SURGERY BUT IT ENDED. SHE DECLINES HH AT THIS TIME. PT HOPES TO BE ABLE TO GO HOME TODAY. DENIES NEEDS
--- NOTE | 2018-01-12 10:50 | CON ---
[address] [address] CONSULTATION Name: AUSTIN WRIGHT Room: [address] IN .R.#: [id number] Admission: 12/23/17 Attend Phys: Fariha Nielsen MD Discharge: 12/26/17 Date of : 35 Report #: [id number] THIS REPORT FOR: //name// CC: Fariha Abdi DATE OF SERVICE: 12/24/2017 REQUESTING PHYSICIAN: Dr. Nielsen. PRIMARY CARE PHYSICIAN: Jorge Abdi MD CHIEF COMPLAINT: Abnormal troponin. HISTORY OF PRESENT ILLNESS: The patient is an 82-year-old woman who just had neurosurgery in [facility], was admitted for some nonspecific symptoms. Apparently, a cardiac troponin level was ordered per protocol in the Emergency Room and was mildly abnormal at 0.12. She clinically and categorically denies chest pain, pressure, shortness of breath, orthopnea or palpitations. She just had neurosurgery at [facility] and apparently had a cardiac workup there preoperatively. She is currently in an immobilizer. Clinically, she denies chest pain or pressure. She is not very physically active at this point, but denies shortness of breath. She does have cardiovascular risk factors in that she has high blood pressure and age as well as a possible family history of heart disease. She is an insulin requiring diabetic as well. She denies palpitations or heart racing and presents in sinus rhythm. PAST MEDICAL HISTORY: C-spine laminectomy as noted above, hypothyroidism, diabetes, hypertension, osteoarthritis, HOME MEDICATIONS: Include Synthroid 88 mcg daily, Carafate b.i.d., hydrochlorothiazide 12.5 mg daily, Cozaar 50 mg p.o. daily, carbidopa/levodopa, Protonix 40 mg daily, Glucotrol 5 mg p.o. t.i.d., hydralazine 25 mg p.o. p.r.n., insulin lispro and iron. SOCIAL HISTORY: She is a nonsmoker. REVIEW OF SYSTEMS: GASTROINTESTINAL: No nausea or vomiting. CARDIOVASCULAR: No chest pain, no orthopnea, [place] [address] CONSULTATION Name: AUSTIN WRIGHT Room: [address]#: [id number] Admission: 12/23/17 Attend Phys: Fariha Nielsen MD Discharge: 12/26/17 Date of : 35 Report #: [id number] HEMATOLOGIC: No anemia or bleeding disorder. ENDOCRINE: Positive diabetes. Positive thyroid disease. SKIN: No rashes. GENERAL: No fevers or chills. PULMONARY: No history of asthma, emphysema. PHYSICAL EXAMINATION: VITAL SIGNS: Blood pressure is 106/40, pulse is 86. She is in the sinus rhythm. GENERAL: This is a pleasant elderly female. She is in no apparent distress. NECK: She is wearing a C-spine collar. CARDIOVASCULAR: Regular. I cannot hear a murmur. LUNGS: Clear to auscultation. ABDOMEN: Soft, nontender. EXTREMITIES: No peripheral edema. NEUROLOGIC: There are no focal deficits. SKIN: Warm and dry. PSYCHIATRIC: The patient has appropriate mood and affect. LABORATORY DATA: Electrocardiogram shows sinus rhythm, LVH. Normal ST segments. Cardiac troponin level is 0.12 and 0.06 initially. IMAGING: CTA of the chest shows no evidence for pulmonary embolus or dissection. 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 Chest x-ray shows no acute radiographic abnormality. IMPRESSION: 1. Abnormal troponin. In the absence of angina type symptoms or evidence of acute coronary syndrome I would not proceed with aggressive workup unless she should develop some angina or anginal equivalent. These were discussed with the patient. 2. Hypertension. We will continue with medical therapy. 3. Status post recent neurosurgery. This could be the etiology of her abnormal cardiac troponin level. 4. Diabetes mellitus. Continue with aggressive medical therapy. We will be available on an as needed basis. <ELECTRONICALLY SIGNED> By: Erick Velasquez MD, FACC 01/12/18 1050 1208 [id number] Velasquez MD, FACC /nt
== END 2017-12-26 13:31 | disposition home or self-care (01) | DRG 871 ==
LOC: M.ERS 18:05 → M.2W 23:52 → M.TBA-ER 23:52 → M.2W 12-24 01:30
PROVIDERS: Emergency Medicine; Personal Emergency Response Attendant; ADMIT Internal Medicine
DX: A41.9 Sepsis, unspecified organism (principal); J69.0 Pneumonitis due to inhalation of food and vomit; E43 Unspecified severe protein-calorie malnutrition; G93.41 Metabolic encephalopathy; R00.0 Tachycardia, unspecified; E03.9 Hypothyroidism, unspecified; M19.90 Unspecified osteoarthritis, unspecified site; G20 Parkinson's disease; R74.0 Nonspecific elevation of levels of transaminase and lactic acid dehydrogenase [LDH]; E11.9 Type 2 diabetes mellitus without complications; D64.9 Anemia, unspecified; Z90.49 Acquired absence of other specified parts of digestive tract; Z88.8 Allergy status to other drugs, medicaments and biological substances; Z86.73 Personal history of transient ischemic attack (TIA), and cerebral infarction without residual deficits; Z98.1 Arthrodesis status; Z79.2 Long term (current) use of antibiotics; Z79.82 Long term (current) use of aspirin; Z79.899 Other long term (current) drug therapy; Z81.8 Family history of other mental and behavioral disorders

== ENCOUNTER → 2018-03-29 | Outpatient (CLI) | payer MEDICARE ==
[~2018-03-29] MED LIST changes: +AZITHROMYCIN 2250 MG PO; +KEFLEX500 M1 PO
[2018-03-29 10:57] LABS: ABSOLUTE BASOPHILS 0.1 thou/uL (0.0-0.2); ABSOLUTE EOSINOPHILS 0.1 thou/uL (0.0-0.7); ABSOLUTE LYMPHOCYTES 0.9 thou/uL (0.8-5.3); ABSOLUTE MONOCYTES 0.3 thou/uL (0.0-1.2); ABSOLUTE NEUTROPHILS 2.8 thou/uL (1.6-8.1); BASOPHILS 1.3 %; EOSINOPHILS 3.2 %; HEMATOCRIT 35.6 % (37.0-47.0); HEMOGLOBIN 11.9 gm/dL (12.0-15.0); LYMPHOCYTES 21.5 %; MCHC 33.6 g/dL (28.0-37.0); MCV 95.4 fL (80.0-100.0); MONOCYTES 8.1 %; MPV 8.9 fl. (7.2-11.1); NUCLEATED RBCS 0 /100WBC; PLATELET COUNT* 113 thou/uL (150-400); POLYS 65.9 %; RBC 3.73 mil/uL (4.20-5.00); RDW-CV 14.2 % (10.5-14.5); WBC 4.3 thou/uL (4.0-11.0)
[2018-03-29 11:16] LABS: CALCIUM 8.2 mg/dL (8.5-10.1); CREATININE 0.9 mg/dL (0.6-1.3); POTASSIUM 3.9 mmol/L (3.5-5.1); TOTAL BILIRUBIN 1.1 mg/dL (<0.1-1.0); TOTAL PROTEIN 7.2 g/dL (6.4-8.2)
[2018-03-29 12:22] LABS: ESR (SEDRATE) 70 mm/hr (0-30)
[2018-03-30 16:34] LABS: IgG 1790 mg/dL (700-1600); IgM 102 mg/dL (26-217)
[2018-03-30 16:35] LABS: IgA 1591 mg/dL (64-422)
[2018-03-31 16:08] LABS: ANA INTERPRETATION Positive (Negative)
== END ==
LOC: M.LAB 10:33
PROVIDERS: Psychiatry & Neurology Neuromuscular Medicine
DX: I63.9 Cerebral infarction, unspecified (principal); G20 Parkinson's disease; E03.9 Hypothyroidism, unspecified; G62.9 Polyneuropathy, unspecified

== ENCOUNTER → 2018-04-03 | Outpatient (CLI) | payer MEDICARE | LOC: M.MRI 03-29 13:22 | DX: G31.9 Degenerative disease of nervous system, unspecified (principal); M50.223 Other cervical disc displacement at C6-C7 level; M96.1 Postlaminectomy syndrome, not elsewhere classified; M43.22 Fusion of spine, cervical region; I63.9 Cerebral infarction, unspecified; G20 Parkinson's disease; E03.9 Hypothyroidism, unspecified; G62.9 Polyneuropathy, unspecified ==

== ENCOUNTER 2018-05-23 10:24 | Emergency (ER) | payer MEDICARE ==
[~2018-05-23] VITALS: Ht 144.8 cm; Wt 54.0 kg
[2018-05-23] MEDS ORDERED: LIPITOR10 MG PO (10:44)
[2018-05-23] MEDS ORDERED: HYDROCHLOROTHIA25 M2 PO (10:44)
[2018-05-23] MEDS ORDERED: IRON325 PO (10:45)
[2018-05-23] MEDS ORDERED: SYNTHROID75 MCG PO (10:45)
[2018-05-23] MEDS ORDERED: CARBIDOPA-LEVO1 EAC9 PO (10:46)
[2018-05-23] MEDS ORDERED: AMARYL4 MG PO (10:47)
[2018-05-23] MEDS ORDERED: TRADJENTA5 MG (10:47)
[2018-05-23] MEDS ORDERED: COZAAR 25 MG TA25 M1 PO (10:48)
[2018-05-23] MEDS ORDERED: PRANDIN1 MG PO (11:08)
[2018-05-23 11:10] LABS: ABSOLUTE EOSINOPHILS 0.2 thou/uL (0.0-0.7); ABSOLUTE LYMPHOCYTES 0.9 thou/uL (0.8-5.3); ABSOLUTE MONOCYTES 0.5 thou/uL (0.0-1.2); ABSOLUTE NEUTROPHILS 2.7 thou/uL (1.6-8.1); BASOPHILS 0.8 %; HEMATOCRIT 34.5 % (37.0-47.0); HEMOGLOBIN 11.8 gm/dL (12.0-15.0); LYMPHOCYTES 21.5 %; MCH 32.5 pg (26.0-34.0); MCHC 34.2 g/dL (28.0-37.0); MCV 95.1 fL (80.0-100.0); MONOCYTES 10.6 %; MPV 8.8 fl. (7.2-11.1); NUCLEATED RBCS 0 /100WBC; PLATELET COUNT* 116 thou/uL (150-400); POLYS 63.1 %; RBC 3.63 mil/uL (4.20-5.00); WBC 4.3 thou/uL (4.0-11.0)
[2018-05-23 11:14] LABS: ANION GAP 5 mmol/L (7-16); BUN 15 mg/dL (7-18); CALCIUM 8.7 mg/dL (8.5-10.1); CHLORIDE 102 mmol/L (98-107); CO2 30 mmol/L (21-32); GLUCOSE 249 mg/dL (70-99); SODIUM 137 mmol/L (136-145)
[2018-05-23 11:18] LABS: INR 1.1; PROTIME 11.7 Seconds (9.20-11.50)
[2018-05-23 11:22] LABS: URINE BILIRUBIN NEGATIVE (Negative); URINE BLOOD 2+ (Negative); URINE CLARITY CLEAR; URINE COLOR YELLOW; URINE GLUCOSE-RANDOM 1+ (Negative); URINE KETONES NEGATIVE (Negative); URINE LEUKOCYTES-REFLEX NEGATIVE (Negative); URINE NITRITE-REFLEX NEGATIVE (Negative); URINE PROTEIN 2+ (Negative); URINE SPECIFIC GRAVITY >= 1.030 (1.005-1.030)
[2018-05-23 11:25] LABS: ALKALINE PHOSPHATASE 247 U/L (46-116); LIPASE 580 U/L (73-393); NT-PRO BRAIN NAT PEPTIDE 396 pg/mL (<300); SGOT 68 U/L (15-37); SGPT 48 U/L (30-65); TOTAL PROTEIN 8.2 g/dL (6.4-8.2); TROPONIN-I LEVEL <0.06 ng/mL (<0.06)
[2018-05-23 11:58] LABS: SQUAMOUS >10 Many /LPF (0-3)
[2018-05-23 12:00] LABS: URINE RBC 0-2 Rare /HPF (0-2); URINE WBC-REFLEX 0-5 Rare /HPF (0-5)
[2018-05-23 12:01] LABS: HYALINE CASTS 4-10 Moderate /LPF (None Seen); MUCUS None Seen strn/LPF (None Seen)
[2018-05-23 12:02] LABS: CRYSTALS None Seen /LPF (None Seen)
[2018-05-23 13:15] VITALS: BP 176/72
--- NOTE | 2018-05-24 18:03 | EKG ---
[place] [address] ELECTROCARDIOGRAM REPORT Name: AUSTIN WRIGHT Room: 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: MERT : 1935 Requested By: Tobias Engle Order Number: [id number] MD: Haider Cotton Measurements Intervals [place] Rate: 76 P: 56 [place]: 140 QRS: -15 QRSD: 95 T: 47 QT: 421 QTc: 474 Interpretive Statements Sinus rhythm Left ventricular hypertrophy Compared to ECG 12/23/2017 18:18:13 Sinus tachycardia no longer present Electronically Signed On 05-24-2018 18:03:15 [facility] AFFA[facility] INTERN by Haider Cotton [email or web address] <ELECTRONICALLY SIGNED> By: Haider Cotton MD, [facility] 05/24/18 1803 1059 1059 Haider Cotton MD, FACC /EPI
== END 2018-05-23 13:21 | disposition home or self-care (01) ==
LOC: M.ERS 10:24
PROVIDERS: Emergency Medicine
DX: R53.1 Weakness (principal); R60.0 Localized edema; E11.9 Type 2 diabetes mellitus without complications; E03.9 Hypothyroidism, unspecified; G20 Parkinson's disease; Z88.8 Allergy status to other drugs, medicaments and biological substances; Z90.49 Acquired absence of other specified parts of digestive tract; Z86.73 Personal history of transient ischemic attack (TIA), and cerebral infarction without residual deficits; Z79.4 Long term (current) use of insulin

== ENCOUNTER 2018-07-28 07:19 | Inpatient (IN) | payer MEDICARE, OTHER, MEDICAID ==
[~2018-07-28] VITALS: Ht 121.9 cm; Wt 49.9 kg
[~2018-07-28 07:19] MED LIST changes: +AMARYL4 MG PO; +CARBIDOPA-LEVO1 EAC9 PO; +HYDROCHLOROTHIA25 M2 PO; +IRON325 PO; +PRANDIN1 MG PO; +SYNTHROID75 MCG PO; +TRADJENTA5 MG
[2018-07-28 07:20] VITALS: BP 197/80
[2018-07-28 08:07] LABS: ABSOLUTE EOSINOPHILS 0.1 thou/uL (0.0-0.7); ABSOLUTE LYMPHOCYTES 0.8 thou/uL (0.8-5.3); ABSOLUTE MONOCYTES 0.4 thou/uL (0.0-1.2); ABSOLUTE NEUTROPHILS 2.9 thou/uL (1.6-8.1); BASOPHILS 0.7 %; EOSINOPHILS 2.9 %; HEMATOCRIT 33.7 % (37.0-47.0); HEMOGLOBIN 11.4 gm/dL (12.0-15.0); LYMPHOCYTES 19.4 %; MCH 31.1 pg (26.0-34.0); MCHC 33.9 g/dL (28.0-37.0); MCV 91.9 fL (80.0-100.0); MONOCYTES 8.4 %; MPV 9.6 fl. (7.2-11.1); NUCLEATED RBCS 0 /100WBC; PLATELET COUNT* 77 thou/uL (150-400); POLYS 68.6 %; RBC 3.67 mil/uL (4.20-5.00); RDW-CV 13.9 % (10.5-14.5); WBC 4.2 thou/uL (4.0-11.0)
[2018-07-28 08:12] LABS: ANION GAP 4 mmol/L (7-16); BUN 19 mg/dL (7-18); CALCIUM 8.8 mg/dL (8.5-10.1); CHLORIDE 106 mmol/L (98-107); CO2 30 mmol/L (21-32); GLUCOSE 204 mg/dL (70-99); SODIUM 140 mmol/L (136-145)
[2018-07-28 08:14] LABS: APTT 23.6 Seconds (25.0-31.3); INR 1.1; PROTIME 11.2 Seconds (9.20-11.50)
[2018-07-28 08:30] LABS: ALBUMIN 2.1 g/dL (3.4-5.0); ALKALINE PHOSPHATASE 297 U/L (46-116); CK-MB MASS 0.9 ng/mL (<0.5-3.6); NT-PRO BRAIN NAT PEPTIDE 381 pg/mL (<300); SGOT 45 U/L (15-37); SGPT 11 U/L (30-65); TOTAL BILIRUBIN 1.4 mg/dL (<0.1-1.0); TOTAL PROTEIN 7.9 g/dL (6.4-8.2); TROPONIN-I LEVEL <0.06 ng/mL (<0.06)
[2018-07-28 09:04] LABS: URINE BILIRUBIN NEGATIVE (Negative); URINE BLOOD TRACE (Negative); URINE CLARITY CLEAR; URINE COLOR YELLOW; URINE GLUCOSE-RANDOM NEGATIVE (Negative); URINE KETONES NEGATIVE (Negative); URINE LEUKOCYTES-REFLEX NEGATIVE (Negative); URINE NITRITE-REFLEX NEGATIVE (Negative); URINE PROTEIN 1+ (Negative); URINE SPECIFIC GRAVITY 1.015 (1.005-1.030)
[2018-07-28 12:30] VITALS: BP 185/68
[2018-07-28 12:37] VITALS: BP 186/78
--- NOTE | 2018-07-28 15:34 | EKG ---
[place] [address] ELECTROCARDIOGRAM REPORT Name: AUSTIN WRIGHT Room: [address] ADM IN M.R.#: [id number] Admission: 07/28/18 Attend Phys: Dennis Lunsford MD Discharge: Date of : 35 Report #: [id number] THIS REPORT FOR: //name// [facility] ED Test Date: 2018-07-28 Test Time: 07:29:34 Pat Name: AUSTIN WRIGHT Department: Room: [facility] Gender: F Clinical Services Specialist: Jesenia SMITH : 1935 Requested By: Jean Carlos Flanagan Order Number: [id number] MD: Adelso Rodriguez Measurements Intervals [place] Rate: 83 P: 67 SC: 147 QRS: -8 QRSD: 84 T: 41 QT: 408 QTc: 480 Interpretive Statements Sinus rhythm Left ventricular hypertrophy Compared to ECG 05/23/2018 10:59:25 No significant changes Electronically Signed On 07-28-2018 15:34:07 [employer] by Adelso Rodriguez [email or web address] <ELECTRONICALLY SIGNED> By: Adelso Rodriguez MD, [facility] 07/28/18 1534 8 Adelso Rodriguez MD, FAC /EPI
[2018-07-28 16:00] VITALS: BP 110/38
--- NOTE | 2018-07-28 16:32 | 2DMMODE ---
[place] [address] 2 D/M-MODE ECHOCARDIOGRAM Name: AUSTIN WRIGHT Room: [address] IN [facility]#: [id number] Admission: 07/28/18 Attend Phys: Dennis Lunsford, Discharge: Date of : 35 Date of Service: 07/28/18 1632 Report #: [id number] THIS REPORT FOR: //name// APPROVED REPORT Study performed: 07/28/2018 14:10:15 EXAM: Comprehensive 2D, Doppler, and color-flow Echocardiogram Patient Location: In-Patient Room #: [facility] Status: routine BSA: 1.53 HR: 95 bpm BP: 186/78 mmHg Rhythm: NSR Other Information Study Quality: Good Indications CVA/TIA Echo Enhancing Agent Indication: Rule out Shunt Agent(s) / Amount(s) Used: Agitated Saline 10 cc 2D Dimensions IVSd: 11.32 (7-11mm) LVOT Diam: 18.28 (18-24mm) LVDd: 41.03 mm PWd: 9.01 (7-11mm) Ascending Ao: 27.45 (22-36mm) LVDs: 22.26 (25-40mm) Aortic Root: 23.42 mm Volumes Left Atrial Volume (Systole) LA ESV Index: 29.50 mL/m2 Aortic Valve AoV Peak Kevin.: 1.79 m/s AO Peak Gr.: 12.78 mmHg LVOT Max P.71 mmHg AO Mean Gr.: 7.19 mmHg LVOT Mean P.69 mmHg LVOT Max V: 1.30 m/s AO V2 VTI: 37.49 cm LVOT Mean V: 0.90 m/s MARIE (VTI): 2.07 cm2 LVOT V1 VTI: 29.56 [place] [address] 2 D/M-MODE ECHOCARDIOGRAM Name: AUSTIN WRIGHT Room: [address] IN [facility].#: [id number] Admission: 07/28/18 Attend Phys: Dennis Lunsford, Discharge: Date of : 35 Date of Service: 07/28/18 1632 Report #: [id number] Mitral Valve E/A Ratio: 0.68 MV Decel. Time: 118.10 ms MV E Max Kevin.: 0.81 m/s MV PHT: 34.25 ms MVA (PHT): 6.42 cm2 TDI E/Lateral E': 9.00 E/Medial E': 10.13 Medial E' Kevin.: 0.08 m/s Lateral E' Kevin.: 0.09 m/s Pulmonary Valve PV Peak Kevin.: 1.30 m/s PV Peak Gr.: 6.75 mmHg Tricuspid Valve RAP Estimate: 5.00 mmHg TR Peak Gr.: 27.49 mmHg RVSP: 32.00 mmHg PA Pressure: 32.00 mmHg Left Ventricle The left ventricle is normal size. There is normal LV segmental wall motion. There is normal left ventricular wall thickness. Left ventricular systolic function is normal. The left ventricular ejection fraction is within the normal range. LVEF is 65-70%. Grade I - abnormal relaxation pattern. Right Ventricle The right ventricle is normal size. The right ventricular systolic function is normal. Atria The left atrium size is normal. The right atrium size is normal. Aortic Valve The aortic valve is normal in structure. No aortic regurgitation is present. There is no aortic valvular stenosis. Mitral Valve The mitral valve is normal in structure. Trace mitral regurgitation. No evidence of mitral valve stenosis. Tricuspid Valve The tricuspid valve is normal in structure. Trace tricuspid regurgitation. Mild [place] [address] 2 D/M-MODE ECHOCARDIOGRAM Name: AUSTIN WRIGHT Room: [address] IN [facility]#: [id number] Admission: 07/28/18 Attend Phys: Dennis Lunsford, Discharge: Date of : 35 Date of Service: 07/28/18 1632 Report #: [id number] Pulmonic Valve The pulmonary valve is normal in structure. There is no pulmonic valvular regurgitation. Great Vessels The aortic root is normal in size. IVC is normal in size and collapses >50% with inspiration. Pericardium There is no pericardial effusion. <Conclusion> The left ventricle is normal size. There is normal left ventricular wall thickness. Left ventricular systolic function is normal. The left ventricular ejection fraction is within the normal range. LVEF is 65-70%. Grade I - abnormal relaxation pattern. The right ventricle is normal size. The left atrium size is normal. The right atrium size is normal. The aortic valve is normal in structure. The mitral valve is normal in structure. The tricuspid valve is normal in structure. IVC is normal in size and collapses >50% with inspiration. There is no pericardial effusion. There is normal LV segmental wall motion. <ELECTRONICALLY SIGNED> By: Adelso Rodriguez MD, FACC 07/28/18 163 163 31 Adelso Rodriguez MD, FACC /INF
[2018-07-28 19:15] VITALS: BP 180/91
[2018-07-28 21:50] VITALS: BP 113/85
[2018-07-29] VITALS (7 sets, daily range): BP systolic 111–169; BP diastolic 48–71
[2018-07-29 06:17] LABS: ABSOLUTE EOSINOPHILS 0.2 thou/uL (0.0-0.7); ABSOLUTE LYMPHOCYTES 1.2 thou/uL (0.8-5.3); ABSOLUTE MONOCYTES 0.5 thou/uL (0.0-1.2); ABSOLUTE NEUTROPHILS 2.9 thou/uL (1.6-8.1); BASOPHILS 0.6 %; EOSINOPHILS 3.4 %; HEMOGLOBIN 10.1 gm/dL (12.0-15.0); LYMPHOCYTES 25.6 %; MCH 31.8 pg (26.0-34.0); MCHC 34.7 g/dL (28.0-37.0); MCV 91.8 fL (80.0-100.0); MONOCYTES 10.2 %; MPV 9.4 fl. (7.2-11.1); NUCLEATED RBCS 0 /100WBC; PLATELET COUNT* 78 thou/uL (150-400); POLYS 60.2 %; RBC 3.16 mil/uL (4.20-5.00); RDW-CV 14.4 % (10.5-14.5); WBC 4.8 thou/uL (4.0-11.0)
[2018-07-29 06:27] LABS: CALCIUM 7.9 mg/dL (8.5-10.1); POTASSIUM 3.5 mmol/L (3.5-5.1)
[2018-07-29 07:21] LABS: CHOLESTEROL 85 mg/dL (<200); HDL CHOLESTEROL 37 mg/dL (>40); LDL CHOLESTEROL 34 mg/dL (<100); SERUM ASSESSMENT Clear; TC:HDL 2.3 Ratio (Not establshd); TRIGLYCERIDE 72 mg/dL (<150); VLDL 14 mg/dL (<40)
[2018-07-30 03:45] VITALS: BP 144/54
[2018-07-30 09:25] VITALS: BP 153/50
[2018-07-30 12:00] VITALS: BP 150/66
[2018-07-30 16:00] VITALS: BP 155/50
[2018-07-30 20:00] VITALS: BP 151/54
[2018-07-31 08:22] VITALS: BP 148/49
--- NOTE | 2018-07-31 13:52 | CON ---
[address] [address] CONSULTATION Name: AUSTIN WRIGHT Room: [address] IN M.R.#: [id number] Admission: 07/28/18 Attend Phys: Dennis Lunsford MD Discharge: Date of : 35 Report #: [id number] THIS REPORT FOR: //name// CC: Dennis Madisonhawa DATE OF SERVICE: 07/28/2018 HISTORY OF PRESENT ILLNESS: This is an 83-year-old female patient who was evaluated by me for an unusual symptom. I have seen this patient for a long time. She has multiple symptoms. I have never been able to find any treatable cause for it. She says she is feeling dizzy. Her memory is poor. At one time, we thought she may have Parkinson disease, but I am not sure about that. She does have diabetes as I understand. She has hyperlipidemia. REVIEW OF SYSTEMS: Positive for diabetes, hypothyroidism shoulder problem, neck surgeries, cervical spine pathology, what appeared to be progressively deteriorating memory and at one time, we thought she may have Parkinson disease, I am not certain. I have sent her to multiple physicians, but they have not found any etiology. PAST MEDICAL HISTORY: Negative for any early age stroke. FAMILY HISTORY: Negative for early age stroke. SOCIAL HISTORY: She lives with her . PHYSICAL EXAMINATION: Indicate that she is alert. She can follow simple commands. Her memory is very poor. Fund of knowledge is very poor. Cranial nerve examinations appear unremarkable. Strength, sensation, reflexes and tone is about the same as usual. Cardiac is unremarkable. She is thinly built individual. She does not have any dysmorphic features of eyes, ears and face. Her vision and hearing looks adequate. LABORATORY DATA: Indicate white count of 4.2. IMPRESSION AND PLAN: I am not sure what the etiology of this patient. We have worked her extensively in the past to determine any treatable etiology, we have not found any. I will check an MRI and await some workup and see if we will be able to do anything differently, but otherwise I have told the patient in the past that [place] [address] CONSULTATION Name: AUSTIN WRGIHT Room: [address] IN .R.#: [id number] Admission: 07/28/18 Attend Phys: Dennis Lunsford MD Discharge: Date of : 35 Report #: [id number] Thank you very much for this referral. <ELECTRONICALLY SIGNED> By: Harpreet Erickson MD 07/31/18 1352 1735 [id number] Erickson MD /nt
[2018-07-31 16:00] VITALS: BP 136/54
[2018-07-31 21:00] VITALS: BP 127/54
[2018-08-01 04:00] VITALS: BP 127/46
[2018-08-01 08:00] VITALS: BP 128/49
[2018-08-01 16:06] VITALS: BP 119/78
[2018-08-01 21:00] VITALS: BP 130/67
[2018-08-02 04:00] VITALS: BP 132/57
[2018-08-02 08:04] VITALS: BP 150/57
[2018-08-02 14:21] VITALS: BP 150/57
[2018-08-02] MEDS ORDERED: CEFDINIR300 MG PO (14:21)
[2018-08-02 16:58] VITALS: BP 150/57
--- NOTE | 2018-08-04 13:47 | EEG ---
[address] [address] EEG STUDY REPORT Name: AUSTIN WRIGHT Room: [address] IN M.R.#: [id number] Admission: 07/28/18 Attend Phys: Dennis Lunsford MD Discharge: 08/02/18 Date of : 35 Report #: [id number] THIS REPORT FOR: //name// CC: Dennis Madisonhawa DATE OF SERVICE: 07/31/2018 This patient is being evaluated for altered mental status. EEG was done by placing the electrodes by standard 10-20 system of electrode placement. Both referential and sequential montages were used for recording. Background activity in this patient's EEG is about 5-6 Hz. It is slow. 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 The patient goes to sleep that is associated with bilateral slowing and vertex sharp waves. Photic stimulation was unremarkable. Throughout the record, no active epileptiform activity was noticed. IMPRESSION: This EEG is slow on both sides. That is a nonspecific abnormality, which can occur with dementia, encephalopathy, effect of psychotropic medication. No active epileptiform activity was noticed. <ELECTRONICALLY SIGNED> By: Harpreet Erickson MD 08/04/18 1347 1550 1725Parbriseyda Erickson MD /nt
== END 2018-08-02 17:00 | DRG 70 ==
LOC: M.ERS 07:19 → M.ORTHSURG 09:28 → M.TBA-ER 09:28 → M.2W 12:26 → M.ORTHSURG 07-30 20:00
PROVIDERS: Family Medicine; ADMIT Internal Medicine
DX: G93.41 Metabolic encephalopathy (principal); J18.9 Pneumonia, unspecified organism; N39.0 Urinary tract infection, site not specified; R47.01 Aphasia; G20 Parkinson's disease; F02.80 Dementia in other diseases classified elsewhere, unspecified severity, without behavioral disturbance, psychotic disturbance, mood disturbance, and anxiety; E11.9 Type 2 diabetes mellitus without complications; E03.9 Hypothyroidism, unspecified; E86.0 Dehydration; Z86.73 Personal history of transient ischemic attack (TIA), and cerebral infarction without residual deficits; Z79.899 Other long term (current) drug therapy; Z90.49 Acquired absence of other specified parts of digestive tract; Z88.8 Allergy status to other drugs, medicaments and biological substances

== ENCOUNTER 2018-09-18 19:34 | Inpatient (IN) | payer MEDICARE, MEDICAID ==
[~2018-09-18] VITALS: Ht 152.4 cm; Wt 53.1 kg
--- NOTE | ~2018-09-18 | CON ---
[address] [address] CONSULTATION Name: AUSTIN WRIGHT Room: [address] IN .R.#: [id number] Admission: 09/18/18 Attend Phys: Dennis Lunsford MD Discharge: Date of : 35 Report #: [id number] THIS REPORT FOR: //name// CC: Dennis Patel [facility] DATE OF SERVICE: 09/21/2018 HISTORY OF PRESENT ILLNESS: This is an 83-year-old female who was brought to hospital because her blood pressure was high. The patient has history of diabetes mellitus, hypothyroidism and Parkinson disease. Since hospitalization, she was found to have a UTI, for which she has been receiving treatment with antibiotics. She also had a CT of abdomen and pelvis, which showed some pockets of ascites and heterogenicity of the liver consistent or suggestive of liver disease, cirrhosis. She also has thrombocytopenia and high serum iron and iron saturation of 95%. PAST MEDICAL HISTORY: Significant for diabetes mellitus, pernicious anemia, hypothyroidism, Parkinson disease, UTIs, hypothyroidism, left shoulder surgery, neck surgery, tonsillectomy. Gallbladder disease, status post cholecystectomy. Ovarian surgery and appendectomy. MEDICATIONS: Please refer to MAR. SOCIAL HISTORY: The patient resides in a senior living. She denies tobacco or alcohol use. PHYSICAL EXAMINATION: VITAL SIGNS: Reveal blood pressure of 144/63, respirations 18, pulse 90, temperature 98.5. LUNGS: Clear. CARDIOVASCULAR: Regular. ABDOMEN: Large, soft, nontender, nondistended. Bowel sounds are positive. NEUROLOGIC: The patient is able to answer questions appropriately and is alert. LABORATORY DATA: Reveals sodium of 140, potassium 4.7, BUN is 56, creatinine 1.8, glucose 49, AST is 44, ALT is 6, alkaline phosphatase is 214. Ammonia level is 38. Lactic acid is 2.3. Iron is 200, TIBC of 210, with iron saturation of 95. Vitamin B12 levels are 1886. Hemoglobin A1c is 7.2. INR is 1.1. WBC is 5.1, with hemoglobin of 8.3 and platelet of 74. IMAGING: CT of abdomen and pelvis was obtained on admission. There is bladder distention without any evidence of bladder wall thickening. There is also soft tissue anasarca and mesenteric soft tissue stranding. There is also evidence of cirrhosis with small amount of ascites. Small left pleural effusion with left lower lobe dependent infiltrate consist [place] [address] CONSULTATION Name: AUSTIN WRIGHT Room: [address] IN [facility]#: [id number] Admission: 09/18/18 Attend Phys: Dennis Lunsford MD Discharge: Date of : 35 Report #: [id number] ASSESSMENT AND PLAN: The patient with evidence of cirrhosis as she has thrombocytopenia, AST to ALT ratio more than 1, heterogenicity of the liver per imaging, increased ammonia level. We will consider checking for AFB as we are waiting for ultrasound results. I will also check for hemochromatosis gene panel and make further recommendation based on finding. Meanwhile, the patient is receiving antibiotics for urosepsis. By: 1656 [id number] Batista MD /nt
[~2018-09-18 19:34] MED LIST changes: +ASPIR 8181 MG PO; +CEFDINIR300 MG PO; +CEFUROXIME250 MG PO; -TRADJENTA5 MG; +TRADJENTA5 MG PO; +ZYVOX600 MG PO
[2018-09-18 19:35] VITALS: BP 219/85
[2018-09-18 20:01] LABS: ABSOLUTE EOSINOPHILS 0.2 thou/uL (0.0-0.7); ABSOLUTE LYMPHOCYTES 0.9 thou/uL (0.8-5.3); ABSOLUTE MONOCYTES 0.4 thou/uL (0.0-1.2); ABSOLUTE NEUTROPHILS 6.2 thou/uL (1.6-8.1); BASOPHILS 0.5 %; EOSINOPHILS 2.9 %; HEMATOCRIT 35.2 % (37.0-47.0); HEMOGLOBIN 11.8 gm/dL (12.0-15.0); LYMPHOCYTES 11.1 %; MCH 31.7 pg (26.0-34.0); MCHC 33.5 g/dL (28.0-37.0); MCV 94.6 fL (80.0-100.0); MONOCYTES 4.6 %; MPV 8.3 fl. (7.2-11.1); NUCLEATED RBCS 0 /100WBC; PLATELET COUNT* 125 thou/uL (150-400); POLYS 80.9 %; RBC 3.72 mil/uL (4.20-5.00); RDW-CV 16.5 % (10.5-14.5); WBC 7.7 thou/uL (4.0-11.0)
[2018-09-18 20:19] LABS: ANION GAP 8 mmol/L (7-16); BUN 46 mg/dL (7-18); CALCIUM 8.7 mg/dL (8.5-10.1); CHLORIDE 102 mmol/L (98-107); CO2 25 mmol/L (21-32); CREATININE 1.7 mg/dL (0.6-1.3); GLUCOSE 343 mg/dL (70-99); INR 1.1; POTASSIUM 4.5 mmol/L (3.5-5.1); PROTIME 11.5 Seconds (9.20-11.50); SODIUM 135 mmol/L (136-145); TROPONIN-I LEVEL <0.06 ng/mL (<0.06)
[2018-09-18 20:20] LABS: ALBUMIN 1.9 g/dL (3.4-5.0); ALKALINE PHOSPHATASE 214 U/L (46-116); NT-PRO BRAIN NAT PEPTIDE 517 pg/mL (<300); SGOT 44 U/L (15-37); SGPT 6 U/L (30-65); TOTAL BILIRUBIN 0.9 mg/dL (<0.1-1.0); TOTAL PROTEIN 8.2 g/dL (6.4-8.2)
[2018-09-18 20:59] LABS: URINE BILIRUBIN NEGATIVE (Negative); URINE BLOOD 3+ (Negative); URINE CLARITY CLEAR; URINE COLOR YELLOW; URINE GLUCOSE-RANDOM 1+ (Negative); URINE KETONES NEGATIVE (Negative); URINE LEUKOCYTES-REFLEX TRACE (Negative); URINE NITRITE-REFLEX NEGATIVE (Negative); URINE PROTEIN 2+ (Negative); URINE SPECIFIC GRAVITY 1.025 (1.005-1.030); URINE UROBILINOGEN 0.2 E.U./dl (0.2-1.0)
[2018-09-18 21:09] LABS: HYALINE CASTS 0-3 Few /LPF (None Seen); MUCUS None Seen strn/LPF (None Seen); SQUAMOUS >10 Many /LPF (0-3)
[2018-09-18 21:10] LABS: URINE WBC-REFLEX 6-15 Few /HPF (0-5)
[2018-09-18 21:11] LABS: CRYSTALS None Seen /LPF (None Seen); URINE RBC 3-10 Few /HPF (0-2); YEAST-REFLEX Present (None Seen)
[2018-09-18 21:13] LABS: BACTERIA-REFLEX 1-9 Few /HPF (None Seen)
[2018-09-18 23:20] VITALS: BP 135/59
[2018-09-18 23:35] VITALS: BP 137/55
[2018-09-19 04:00] VITALS: BP 136/62
[2018-09-19 09:29] LABS: CALCIUM 7.9 mg/dL (8.5-10.1); CREATININE 1.6 mg/dL (0.6-1.3); PHOSPHORUS* 3.5 mg/dL (2.5-4.9); POTASSIUM 4.2 mmol/L (3.5-5.1)
[2018-09-19 09:30] VITALS: BP 96/46
[2018-09-19 09:31] LABS: ABSOLUTE BASOPHILS 0.1 thou/uL (0.0-0.2); ABSOLUTE EOSINOPHILS 0.1 thou/uL (0.0-0.7); ABSOLUTE MONOCYTES 0.4 thou/uL (0.0-1.2); ABSOLUTE NEUTROPHILS 3.3 thou/uL (1.6-8.1); BASOPHILS 1.1 %; EOSINOPHILS 2.8 %; HEMATOCRIT 25.5 % (37.0-47.0); HEMOGLOBIN 8.6 gm/dL (12.0-15.0); LYMPHOCYTES 19.7 %; MCH 31.9 pg (26.0-34.0); MCHC 33.8 g/dL (28.0-37.0); MCV 94.4 fL (80.0-100.0); MONOCYTES 7.4 %; MPV 8.9 fl. (7.2-11.1); NUCLEATED RBCS 0 /100WBC; PLATELET COUNT* 77 thou/uL (150-400); WBC 4.8 thou/uL (4.0-11.0)
--- NOTE | 2018-09-19 11:30 | EKG ---
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: : 1935 Requested By: Ellie Phillips Order Number: [id number] MD: Erick Velasquez Measurements Intervals [place] Rate: 116 P: 73 FL: 134 QRS: -25 QRSD: 82 T: 97 QT: 336 QTc: 467 Interpretive Statements Sinus tachycardia LVH with secondary repolarization abnormality Compared to ECG 09/07/2018 10:31:07 Early repolarization now present Sinus rhythm no longer present Electronically Signed On 09-19-2018 11:30:15 CDT by Erick Velasquez [email or web address] <ELECTRONICALLY SIGNED> By: Erick Velasquez MD, FACC 09/19/18 1130 1950 1950 Erick Velasquez MD, FAC /EPI
--- NOTE | 2018-09-19 11:31 | EKG ---
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: : 1935 Requested By: Dennis Lunsford Order Number: [id number] Reading MD: Erick Velasquez Measurements Intervals [place] Rate: 94 P: 51 [place]: 145 QRS: -14 QRSD: 77 T: 70 QT: 408 QTc: 511 Interpretive Statements Sinus rhythm LVH with secondary repolarization abnormality Prolonged QT interval Compared to ECG 09/07/2018 10:31:07 Early repolarization now present Electronically Signed On 09-19-2018 11:30:55 CDT by Erick Velasquez [email or web address] <ELECTRONICALLY SIGNED> By: Erick Velasquez MD, [facility] 09/19/18 1130 0824 0824 Erick Velasquez MD, [facility] /EPI
[2018-09-19 11:42] VITALS: BP 112/50
[2018-09-19 17:05] VITALS: BP 118/54
[2018-09-19 20:00] VITALS: BP 100/54
[2018-09-20 00:04] VITALS: BP 112/45
[2018-09-20 04:00] VITALS: BP 98/41
[2018-09-20 05:31] LABS: ABSOLUTE EOSINOPHILS 0.2 thou/uL (0.0-0.7); ABSOLUTE MONOCYTES 0.3 thou/uL (0.0-1.2); ABSOLUTE NEUTROPHILS 3.7 thou/uL (1.6-8.1); BASOPHILS 0.9 %; EOSINOPHILS 3.2 %; HEMOGLOBIN 8.3 gm/dL (12.0-15.0); LYMPHOCYTES 18.7 %; MCH 31.5 pg (26.0-34.0); MCHC 33.2 g/dL (28.0-37.0); MCV 94.7 fL (80.0-100.0); MONOCYTES 4.9 %; MPV 9.2 fl. (7.2-11.1); NUCLEATED RBCS 0 /100WBC; PLATELET COUNT* 74 thou/uL (150-400); POLYS 72.3 %; RBC 2.64 mil/uL (4.20-5.00); RDW-CV 16.3 % (10.5-14.5); WBC 5.1 thou/uL (4.0-11.0)
[2018-09-20 05:38] LABS: CALCIUM 7.8 mg/dL (8.5-10.1); CREATININE 1.8 mg/dL (0.6-1.3); POTASSIUM 4.7 mmol/L (3.5-5.1)
[2018-09-20 08:30] VITALS: BP 138/56
--- NOTE | 2018-09-20 12:04 | CON ---
[address] [address] CONSULTATION Name: AUSTIN WRIGHT Room: [address] IN .R.#: [id number] Admission: 09/18/18 Attend Phys: Dennis Lunsford MD Discharge: Date of : 35 Report #: [id number] THIS REPORT FOR: //name// CC: Dennis Madisonhawa DATE OF SERVICE: 09/19/2018 ATTENDING PHYSICIAN: Dr. Solorzano. REASON FOR EVALUATION: Complicated urinary tract infection. HISTORY OF PRESENT ILLNESS: This is an 83-year-old with fairly extensive medical history including diabetes mellitus as well as some Parkinson's and I think a degree of dementia who as a result lives in a facility. She was hospitalized in the last couple of weeks with a question of stroke. She did have some marked hypertension. She was found to have a urinary tract infection. It was polymicrobial including Klebsiella as well as Enterococcus, the latter being vancomycin resistant E. faecium. She was treated with therapy and discharged back. She was readmitted through the Emergency Room with again elevated blood pressure and at that point was found to have some moderate pyuria. She denies any significant abdominal pain. She does admit to some frequency with urination. She is uncertain about temperature elevation, does admit to anorexia with poor p.o. intake. Denies significant dyspnea. She was found to have elevated lactic acid of 3.5. Blood cultures are sterile thus far. Empirically treated with therapy, ceftriaxone for which the previous Klebsiella was susceptible. ALLERGIES: OMEPRAZOLE AND RANITIDINE. CURRENT MEDICATIONS: Include atorvastatin, amlodipine, ceftriaxone, aspirin, levothyroxine and insulin sliding scale. PAST MEDICAL HISTORY: Diabetes mellitus type 2, pernicious anemia, hypothyroidism, history of Parkinson's, TIAs, previous neck surgery, left shoulder surgery, tonsillectomy, cholecystectomy, appendectomy and ovarian surgery. SOCIAL HISTORY: Nonsmoker, no ethanol and no illicit drug use. FAMILY HISTORY: Noncontributory. REVIEW OF SYSTEMS: Otherwise, 10-point review of systems unremarkable except as noted above in the history of present illness. PHYSICAL EXAMINATION: [place] [address] CONSULTATION Name: AUSTIN WRIGHT Room: [address]#: [id number] Admission: 09/18/18 Attend Phys: Dennis Lunsford MD Discharge: Date of : 35 Report #: [id number] GENERAL: She appears chronically ill and undernourished. She is pleasant and cooperative. She is at least moderately encephalopathic. VITAL SIGNS: Temperature 97.6, pulse 98, respirations 18 and blood pressure 136/62. SKIN: Warm, dry and no rashes. HEENT: Normocephalic. Extraocular muscles are intact. NECK: Supple. LUNGS: Diminished breath sounds. HEART: Regular, soft systolic murmur. ABDOMEN: Soft and mildly distended. There are no peritoneal signs. EXTREMITIES: Distal lower extremities without edema. GENITOURINARY: Deferred. RECTAL: Deferred. LABORATORY DATA: CBC from this morning, white count of 4.8, H and H 8.6 and 25.5, distinguished from admission, white count was 7.7 and hemoglobin 11.8. Lactic acid of 3.2, 3.3 and 3.5. Electrolytes: Sodium 139, potassium 4.2, chloride 107, bicarbonate 26, BUN and creatinine 47 and 1.6 with an anion gap of 6 and glucose of 188. Estimated GFR of 31. Blood cultures sterile thus far. Prealbumin of 9.1. Urinalysis: 6-15 white cells, 1-9 bacteria and some yeast present. Chest x-ray: Increasing medial basilar density suggestive of atelectasis. ASSESSMENT: Complicated urinary tract infection. The patient was admitted for apparently different reasons with hypertension. I think it is reasonable to treat with antibiotics with ceftriaxone, based on previous cultures would cover the Klebsiella. We will continue that for now given the microscopic is showing yeast. We will dose with fluconazole x 1. She remains tenuous. We will monitor expectantly. Certainly at risk for nosocomial related infectious complications. <ELECTRONICALLY SIGNED> By: Newton Lizarraga MD 09/20/18 1204 1006 [id number] Lizarraga MD /nt
[2018-09-20 12:41] VITALS: BP 134/53
[2018-09-20 17:02] VITALS: BP 152/60
[2018-09-20 20:00] VITALS: BP 100/56
[2018-09-21] VITALS (7 sets, daily range): BP systolic 134–159; BP diastolic 56–66
[2018-09-21 13:20] LABS: URINE BILIRUBIN NEGATIVE (Negative); URINE BLOOD 3+ (Negative); URINE CLARITY CLEAR; URINE COLOR YELLOW; URINE GLUCOSE-RANDOM NEGATIVE (Negative); URINE KETONES NEGATIVE (Negative); URINE LEUKOCYTES 1+ (Negative); URINE NITRITE NEGATIVE (Negative); URINE PROTEIN TRACE (Negative); URINE SPECIFIC GRAVITY 1.015 (1.005-1.030); URINE UROBILINOGEN 0.2 E.U./dl (0.2-1.0)
[2018-09-21 13:33] LABS: SQUAMOUS NONE SEEN /LPF (0-3); URINE RBC 3-10 Few /HPF (0-2); URINE WBC 0-5 Rare /HPF (0-5)
[2018-09-21 13:35] LABS: BACTERIA None Seen /HPF (None Seen)
[2018-09-21 13:36] LABS: CASTS None Seen /LPF (None Seen); CRYSTALS None Seen /LPF (None Seen); MUCUS None Seen strn/LPF (None Seen); YEAST Present (None Seen)
[2018-09-22 02:10] LABS: HEPATITIS B SURFACE AG Negative (Negative)
[2018-09-22 06:02] VITALS: BP 143/70
[2018-09-22 08:13] VITALS: BP 133/56
[2018-09-22 09:09] LABS: IgA 1558 mg/dL (64-422); IgG 1834 mg/dL (700-1600); IgM 89 mg/dL (26-217)
[2018-09-22 12:29] VITALS: BP 169/79
[2018-09-22 15:40] VITALS: BP 173/68
[2018-09-22 19:06] LABS: URINE BILIRUBIN NEGATIVE (Negative); URINE BLOOD 2+ (Negative); URINE CLARITY CLEAR; URINE COLOR YELLOW; URINE GLUCOSE-RANDOM NEGATIVE (Negative); URINE KETONES NEGATIVE (Negative); URINE LEUKOCYTES NEGATIVE (Negative); URINE NITRITE NEGATIVE (Negative); URINE PROTEIN 1+ (Negative); URINE UROBILINOGEN 0.2 E.U./dl (0.2-1.0)
[2018-09-22 19:14] LABS: ABSOLUTE EOSINOPHILS 0.3 thou/uL (0.0-0.7); ABSOLUTE LYMPHOCYTES 0.6 thou/uL (0.8-5.3); ABSOLUTE MONOCYTES 0.4 thou/uL (0.0-1.2); ABSOLUTE NEUTROPHILS 4.6 thou/uL (1.6-8.1); BASOPHILS 0.8 %; EOSINOPHILS 5.3 %; HEMATOCRIT 28.3 % (37.0-47.0); HEMOGLOBIN 9.6 gm/dL (12.0-15.0); MCH 32.4 pg (26.0-34.0); MCV 95.1 fL (80.0-100.0); MONOCYTES 6.8 %; MPV 9.1 fl. (7.2-11.1); NUCLEATED RBCS 0 /100WBC; PLATELET COUNT* 52 thou/uL (150-400); POLYS 77.1 %; RBC 2.98 mil/uL (4.20-5.00); RDW-CV 16.3 % (10.5-14.5)
[2018-09-22 19:15] LABS: CASTS None Seen /LPF (None Seen); CRYSTALS None Seen /LPF (None Seen); SQUAMOUS 0-3 Few /LPF (0-3); URINE RBC 0-2 Rare /HPF (0-2); URINE WBC None Seen /HPF (0-5)
[2018-09-22 19:24] LABS: ALBUMIN 1.6 g/dL (3.4-5.0); CALCIUM 8.2 mg/dL (8.5-10.1); CREATININE 1.1 mg/dL (0.6-1.3); POTASSIUM 5.4 mmol/L (3.5-5.1); TOTAL BILIRUBIN 0.7 mg/dL (<0.1-1.0); TOTAL PROTEIN 6.9 g/dL (6.4-8.2)
[2018-09-22 20:31] VITALS: BP 147/67
[2018-09-22 23:04] VITALS: BP 167/60
[2018-09-23 08:01] VITALS: BP 124/49
[2018-09-23 12:06] VITALS: BP 160/93
[2018-09-23 14:30] LABS: ABSOLUTE EOSINOPHILS 0.3 thou/uL (0.0-0.7); ABSOLUTE LYMPHOCYTES 0.8 thou/uL (0.8-5.3); ABSOLUTE MONOCYTES 0.5 thou/uL (0.0-1.2); ABSOLUTE NEUTROPHILS 4.6 thou/uL (1.6-8.1); BASOPHILS 0.5 %; EOSINOPHILS 4.9 %; HEMOGLOBIN 9.3 gm/dL (12.0-15.0); LYMPHOCYTES 13.2 %; MCH 32.5 pg (26.0-34.0); MCHC 34.4 g/dL (28.0-37.0); MCV 94.4 fL (80.0-100.0); MONOCYTES 8.3 %; MPV 9.6 fl. (7.2-11.1); NUCLEATED RBCS 0 /100WBC; POLYS 73.1 %; RBC 2.86 mil/uL (4.20-5.00); WBC 6.2 thou/uL (4.0-11.0)
[2018-09-23 14:38] LABS: PLATELET COUNT* 49 thou/uL (150-400)
[2018-09-23 14:45] LABS: INR 1.1; PROTIME 11.3 Seconds (9.20-11.50)
[2018-09-23 14:51] LABS: ALBUMIN 1.5 g/dL (3.4-5.0); CALCIUM 8.3 mg/dL (8.5-10.1); CREATININE 1.1 mg/dL (0.6-1.3); POTASSIUM 5.6 mmol/L (3.5-5.1); TOTAL BILIRUBIN 0.8 mg/dL (<0.1-1.0); TOTAL PROTEIN 6.8 g/dL (6.4-8.2)
[2018-09-23 15:57] VITALS: BP 148/62
[2018-09-23 20:00] VITALS: BP 167/58
[2018-09-23 23:49] VITALS: BP 150/60
[2018-09-24 08:15] VITALS: BP 135/49
[2018-09-24 12:42] LABS: ALBUMIN 3.4 g/dL (3.4-5.0); CALCIUM 8.7 mg/dL (8.5-10.1); CREATININE 1.9 mg/dL (0.6-1.3); MAGNESIUM 2.1 mg/dL (1.8-2.4); POTASSIUM 5.2 mmol/L (3.5-5.1); TOTAL BILIRUBIN 0.3 mg/dL (<0.1-1.0); TOTAL PROTEIN 7.4 g/dL (6.4-8.2)
[2018-09-24 12:50] LABS: HEMATOCRIT 33.2 % (37.0-47.0); HEMOGLOBIN 10.7 gm/dL (12.0-15.0); MCH 25.5 pg (26.0-34.0); MCHC 32.3 g/dL (28.0-37.0); MPV 9.6 fl. (7.2-11.1); NUCLEATED RBCS 0 /100WBC; RBC 4.21 mil/uL (4.20-5.00); RDW-CV 15.5 % (10.5-14.5); WBC 9.7 thou/uL (4.0-11.0)
[2018-09-24 12:51] LABS: MCV 78.8 fL (80.0-100.0); PLATELET COUNT* 191 thou/uL (150-400)
[2018-09-24 13:39] LABS: ABSOLUTE LYMPHOCYTES 0.4 thou/uL (0.8-5.3); ABSOLUTE MONOCYTES 0.1 thou/uL (0.0-1.2); ABSOLUTE NEUTROPHILS 9.2 thou/uL (1.6-8.1)
[2018-09-24 13:40] LABS: OVALOCYTES Occasional; PLATELET ESTIMATE ADEQUATE
[2018-09-24 13:51] LABS: ANISOCYTOSIS Occasional; MICROCYTES 1+
[2018-09-24 15:27] VITALS: BP 151/51
[2018-09-24 20:00] VITALS: BP 146/56
[2018-09-25] VITALS: BP 146/69
[2018-09-25 08:01] VITALS: BP 128/93
[2018-09-25 11:38] LABS: HEMATOCRIT 26.5 % (37.0-47.0); HEMOGLOBIN 9.1 gm/dL (12.0-15.0); MCH 32.2 pg (26.0-34.0); MCHC 34.1 g/dL (28.0-37.0); MPV 9.6 fl. (7.2-11.1); RBC 2.81 mil/uL (4.20-5.00); RDW-CV 15.9 % (10.5-14.5); WBC 5.9 thou/uL (4.0-11.0)
[2018-09-25 11:58] LABS: ALBUMIN 1.6 g/dL (3.4-5.0); CALCIUM 8.1 mg/dL (8.5-10.1); CREATININE 1.1 mg/dL (0.6-1.3); MAGNESIUM 1.5 mg/dL (1.8-2.4); TOTAL BILIRUBIN 0.6 mg/dL (<0.1-1.0); TOTAL PROTEIN 6.9 g/dL (6.4-8.2)
[2018-09-25 12:10] LABS: KAPPA FREE LIGHT CHAINS 145.3 mg/L (3.3-19.4); LAMBDA FREE LIGHT CHAINS 115.6 mg/L (5.7-26.3)
[2018-09-25 12:18] VITALS: BP 144/59
[2018-09-25 12:22] LABS: MCV 94.4 fL (80.0-100.0)
[2018-09-25] MEDS ORDERED: CEFDINIR300 MG PO (15:57)
[2018-09-25 16:32] VITALS: BP 152/60
[2018-09-25 18:08] LABS: GLOBULIN TOTAL 4.1 g/dL (2.2-3.9); M-SPIKE Not Observed g/dL (Not Observed)
[2018-09-25 20:30] VITALS: BP 151/56
[2018-09-26] VITALS: BP 135/52
[2018-09-26 03:49] VITALS: BP 108/42
[2018-09-26 05:30] LABS: CREATININE 1.1 mg/dL (0.6-1.3); MAGNESIUM 1.3 mg/dL (1.8-2.4); POTASSIUM 5.6 mmol/L (3.5-5.1)
[2018-09-26 07:35] VITALS: BP 137/60
[2018-09-26] MEDS ORDERED: SENNA8.6 MG PO (09:23)
[2018-09-26 10:30] VITALS: BP 137/60
[2018-09-26] MEDS ORDERED: LACTULOSE10 GM/152 PO (11:20)
[2018-09-26] MEDS ORDERED: LOPRESSOR25 PO (11:20)
[2018-09-26] MEDS ORDERED: LASIX 20 MG TAB20 MG PO (11:20)
[2018-09-26] MEDS ORDERED: XIFAXAN550 M1 PO (11:20)
[2018-09-26] MEDS ORDERED: MAGOX 400400 MG PO (11:26)
[2018-09-26] MEDS ORDERED: CEFDINIR300 MG PO (12:08)
== END 2018-09-26 14:15 | disposition hospice, home (50) | DRG 871 ==
LOC: M.ERS 19:34 → M.2W 21:51 → M.TBA-ER 21:51 → M.2W 23:09
PROVIDERS: Emergency Medicine; Family Medicine; Internal Medicine; Internal Medicine Hematology & Oncology; ADMIT Internal Medicine
DX: A41.9 Sepsis, unspecified organism (principal); N17.0 Acute kidney failure with tubular necrosis; E43 Unspecified severe protein-calorie malnutrition; J18.9 Pneumonia, unspecified organism; N39.0 Urinary tract infection, site not specified; I16.0 Hypertensive urgency; E03.9 Hypothyroidism, unspecified; G20 Parkinson's disease; E86.0 Dehydration; K74.69 Other cirrhosis of liver; D89.0 Polyclonal hypergammaglobulinemia; N18.3 Chronic kidney disease, stage 3 (moderate); F02.80 Dementia in other diseases classified elsewhere, unspecified severity, without behavioral disturbance, psychotic disturbance, mood disturbance, and anxiety; E11.22 Type 2 diabetes mellitus with diabetic chronic kidney disease; I12.9 Hypertensive chronic kidney disease with stage 1 through stage 4 chronic kidney disease, or unspecified chronic kidney disease; D64.9 Anemia, unspecified; E83.111 Hemochromatosis due to repeated red blood cell transfusions; R33.9 Retention of urine, unspecified; K56.41 Fecal impaction; E87.5 Hyperkalemia; Z16.24 Resistance to multiple antibiotics; Z90.49 Acquired absence of other specified parts of digestive tract; Z86.73 Personal history of transient ischemic attack (TIA), and cerebral infarction without residual deficits; Z88.8 Allergy status to other drugs, medicaments and biological substances; Z81.8 Family history of other mental and behavioral disorders; Z79.82 Long term (current) use of aspirin; Z79.899 Other long term (current) drug therapy; Z68.22 Body mass index [BMI] 22.0-22.9, adult